=== PATIENT | female | born 1965 | race Caucasian/White ===

== ENCOUNTER 2020-06-15 02:33 | Inpatient (IN) | payer OTHER, MEDICAID ==
[2020-06-15] VITALS (19 sets, daily range): BP systolic 99–119; BP diastolic 62–86
[~2020-06-15] VITALS: Ht 165.1 cm; Wt 82.3 kg
--- NOTE | 2020-06-15 02:45 | NUR ---
Admission Note: Patient admitted from [facility] ER to room 12 in ICU. Patient was found unresponsive in her bed by son on 06/14. Patient was then intubated at [facility] ER due to unresponsive and no gag reflex. Patient is intubated with 7.5 tube and 24 at the teeth. Vent settings are TV of 500, peep 6, FiO2 35%, and RR 18. SpO2 is 100%. Patient moves extremities and has gag reflex but does not follow commands at this time. Patient is relax and not fighting vent with Propofol running at 15mcg/k/min. Patient is able to give medical history at this time and no family is with patient. Medical history pulled from chart from [facility]. Patient is SR to and stable BP with MAP above 65 on monitor. Patient has 98.9 oral temp. no edema. Skin is dry and intact. Patient has OG tube placed by ER. Patient has 18g left AC and 20g left hand. Patient is pending COVID and has been swab at ER. Bilateral SCDs in place. Dr. Baptiste called and orders have been put in. Will continue to monitor.
[2020-06-15 03:07] LABS: BASE EXCESS ABG -2 mmol/L (-3-3); HCO3 ABG 21 mmol/L (21-28); PCO2 ABG 29 mmHg (35-46); PO2 ABG 141 mmHg (75-108); SAT O2 ABG 99 % (92-99)
[2020-06-15] MEDS: IV NORMAL SALINE 1000ML BAG 1,000 ML IV SCH ×2 (03:15→08:52)
--- NOTE | 2020-06-15 03:23 | EKG ---
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
[2020-06-15] MEDS ORDERED: PROPOFOL 100 ML IV PRN (03:30)
[2020-06-15 03:49] LABS: FIO2 ABG 35
--- NOTE | 2020-06-15 06:48 | RAD ---
Study: XR CHEST 1V Indication: Intubation. Comparison: 06/14/2020 Findings: Endotracheal tube tip is at the level of the martita directed towards but not extending into the right mainstem bronchus. Enteric tube terminates beyond the inferior field of view. Unchanged cardiomediastinal silhouette and angelica. No confluent airspace infiltrate, pneumothorax or pl eural effusion. Impression: 1. Endotracheal tube is at the martita directed towards the right mainstem bronchus. Recommend retract ion by a few centimeters even though the lungs are symmetrically aerated. 2. No newly seen abnormality of the chest. Electronically signed by: JUANCARLOS ARTEAGA MD (06/15/2020 6:46 AM) [facility]
[2020-06-15 08:26] LABS: BASE EXCESS ABG -2 mmol/L (-3-3); HCO3 ABG 22 mmol/L (21-28); PCO2 ABG 33 mmHg (35-46); PO2 ABG 149 mmHg (75-108); SAT O2 ABG 99 % (92-99)
[2020-06-15 08:28] LABS: FIO2 ABG 35
--- NOTE | 2020-06-15 09:01 | PDOC2 ---
NEUROLOGY CONSULT Date of Service DOS: DATE: 06/15/20 TIME: 08:59 History of Present Illness History of Present Illness The patient is a 54-year-old female who came to the [facility] emergency department after her son found patient in a bathrobe and unresponsive. He was unable to arouse her and called emergency medical services. They found snoring respirations with no gag reflex, twitching movements, no response to noxious stimuli. Glucose was 154, they gave her Narcan. She was intubated. She has had suicide attempts in the past. She was at [facility]. There is no listed history of stroke or seizure. Past Medical History Hepatobiliary: Hep A/B/C Psych: Anxiety, Depression, Schizophrenia Family History Family History: No pertinent hx (Unobtainable) Social History Social History Unobtainable Current Medications Current Medications Current Medications Sodium Chloride 1,000 ml @ 100 mls/hr Q10H IV Last administered on 06/15/20at 08:52; Start 06/15/20 at 03:15 Propofol 100 ml @ 2.508 mls/ hr CONT PRN IV PER PROTOCOL Last administered on 06/15/20at 07:26; Start 06/15/20 at 03:30 Allergies Allergies: Coded Allergies: amitriptyline (Verified Allergy, Intermediate, 06/15/20) ROS Review of System Unobtainable Physical Exam Physical Examination General: Well-developed, well-nourished white female in no acute distress HEENT: Normocephalic andatraumatic. Temporal arteriespulsatile. Neck: Supple without bruit, no meningismus Musculoskeletal: Stability:see neurologic. Gait exam:see neurologic. Tone:see neurologic. Strength:see neurologic. Neurological: Mental Status:orientation, memory, attention span/concentration, language, fund of knowledge: Intubated, lightly sedated, moves to minimal stimulus. Cranial Nerves:Pupils equal and reactive to light, extraocular movements areintact. There is no facial asymmetry. All other cranial related problems are negative except as mentioned before.Reflexes:2+ and symmetric with flexor plantar responses. Motor:Moves to minimal stimulation. Coordination and gait:Not testable. Sensory:Not testable. Vitals VITALS Vital Signs Date Time Temp Pulse Resp B/P (MAP) Pulse Ox O2 Delivery O2 Flow Rate FiO2 06/15/20 07:45 100 Ventilator 4/23/21 07:00 90 18 112/66 (81) 06/15/20 05:00 98.4 98.4 Labs Labs [facility] laboratory studies: Positive for urine drug screen showing benzodiazepines Laboratory Tests Test 06/15/20 02:55 06/15/20 07:45 O2 Saturation 99 % (92-99) 99 % (92-99) Arterial Blood pH 7.48 (7.35-7.45) 7.44 (7.35-7.45) Arterial Blood pCO2 at Patient Temp 29 mmHg (35-46) 33 mmHg (35-46) Arterial Blood pO2 at Patient Temp 141 mmHg (75-108) 149 mmHg (75-108) Arterial Blood HCO3 21 mmol/L (21-28) 22 mmol/L (21-28) Arterial Blood Base Excess -2 mmol/L (-3-3) -2 mmol/L (-3-3) FiO2 35 35 Laboratory Tests Test 06/15/20 02:55 06/15/20 07:45 O2 Saturation 99 % (92-99) 99 % (92-99) Arterial Blood pH 7.48 (7.35-7.45) 7.44 (7.35-7.45) Arterial Blood pCO2 at Patient Temp 29 mmHg (35-46) 33 mmHg (35-46) Arterial Blood pO2 at Patient Temp 141 mmHg (75-108) 149 mmHg (75-108) Arterial Blood HCO3 21 mmol/L (21-28) 22 mmol/L (21-28) Arterial Blood Base Excess -2 mmol/L (-3-3) -2 mmol/L (-3-3) FiO2 [address] head without contrast, [facility] INDICATION: Change in mental status. COMPARISON: None. TECHNIQUE: Axial CT imaging through the head without the use of intravenous contrast. Sagittal and coronal reformats were obtained. One or more of the following individualized dose reduction techniques were utili zed for this examination: 1. Automated exposure control 2. Adjustment of the mA and/or kV according to patient size 3. Use of iterative reconstruction technique. FINDINGS: No acute intracranial hemorrhage. No mass effect, midline shift or hydrocephalu s. Schroeder-white matter differentiation is maintained. Unremarkable calvarium. No layering fluid seen within the visualized paranasal sinuses. Unremarkable mastoid air cells and middle ears. IMPRESSION: No acute intracranial abnormality by CT. Assessment/Plan Assessment/Plan Impression: Toxic encephalopathy, overdose of benzodiazepines suspected, patient is coming around. I see no evidence of stroke or seizure activity Recommendations: Attempt extubation later today Holding on additional neurological studies such as electroencephalogram and MRI. Thank you for letting me help with the patient's care. AVERY BURGOS MD Jun 15, 2020 09:01
[2020-06-15 09:21] LABS: BASO # 0.1 x10^3/uL (0.0-0.2); BASO % 0 % (0-3); EOS # 0.1 x10^3/uL (0.0-0.7); EOS % 1 % (0-3); HEMATOCRIT 34.2 % (36.0-47.0); HEMOGLOBIN 11.3 g/dL (12.0-15.5); LYMPH # 3.3 x10^3/uL (1.0-4.8); LYMPH % 26 % (24-48); MEAN CORPUSCULAR HEMOGLOBIN 30 pg (25-35); MEAN CORPUSCULAR HGB CONC 33 g/dL (31-37); MEAN CORPUSCULAR VOLUME 89 fL (79-100); MONO % 8 % (0-9); NEUT # 8.2 x10^3/uL (1.8-7.7); NEUT % 65 % (31-73); PLATELET COUNT 205 x10^3/uL (140-400); RED BLOOD COUNT 3.83 x10^6/uL (3.50-5.40); RED CELL DISTRIBUTION WIDTH 14.1 % (11.5-14.5); WHITE BLOOD COUNT 12.6 x10^3/uL (4.0-11.0)
[2020-06-15 09:25] LABS: CALCIUM 8.1 mg/dL (8.5-10.1); CREATININE 0.7 mg/dL (0.6-1.0); GFR 87.5; POTASSIUM 4.1 mmol/L (3.5-5.1)
--- NOTE | 2020-06-15 09:34 | PDOC ---
PULMONARY PROGRESS NOTES DATE: 06/15/20 TIME: 09:34 Vitals Vital Signs Date Time Temp Pulse Resp B/P (MAP) Pulse Ox O2 Delivery O2 Flow Rate FiO2 06/15/20 07:45 100 Ventilator 06/15/20 07:00 90 18 112/66 (81) 06/15/20 05:00 98.4 98.4 Labs Laboratory Tests Test 06/15/20 02:55 06/15/20 07:45 06/15/20 08:44 O2 Saturation 99 % (92-99) 99 % (92-99) Arterial Blood pH 7.48 (7.35-7.45) 7.44 (7.35-7.45) Arterial Blood pCO2 at Patient Temp 29 mmHg (35-46) 33 mmHg (35-46) Arterial Blood pO2 at Patient Temp 141 mmHg (75-108) 149 mmHg (75-108) Arterial Blood HCO3 21 mmol/L (21-28) 22 mmol/L (21-28) Arterial Blood Base Excess -2 mmol/L (-3-3) -2 mmol/L (-3-3) FiO2 35 35 White Blood Count 12.6 x10^3/uL (4.0-11.0) Red Blood Count 3.83 x10^6/uL (3.50-5.40) Hemoglobin 11.3 g/dL (12.0-15.5) Hematocrit 34.2 % (36.0-47.0) Mean Corpuscular Volume 89 fL (79-100) Mean Corpuscular Hemoglobin 30 pg (25-35) Mean Corpuscular Hemoglobin Concent 33 g/dL (31-37) Red Cell Distribution Width 14.1 % (11.5-14.5) Platelet Count 205 x10^3/uL (140-400) Neutrophils (%) (Auto) 65 % (31-73) Lymphocytes (%) (Auto) 26 % (24-48) Monocytes (%) (Auto) 8 % (0-9) Eosinophils (%) (Auto) 1 % (0-3) Basophils (%) (Auto) 0 % (0-3) Neutrophils # (Auto) 8.2 x10^3/uL (1.8-7.7) Lymphocytes # (Auto) 3.3 x10^3/uL (1.0-4.8) Monocytes # (Auto) 1.0 x10^3/uL (0.0-1.1) Eosinophils # (Auto) 0.1 x10^3/uL (0.0-0.7) Basophils # (Auto) 0.1 x10^3/uL (0.0-0.2) Sodium Level 143 mmol/L (136-145) Potassium Level 4.1 mmol/L (3.5-5.1) Chloride Level 108 mmol/L (98-107) Carbon Dioxide Level 25 mmol/L (21-32) Anion Gap 10 (6-14) Blood Urea Nitrogen 17 mg/dL (7-20) Creatinine 0.7 mg/dL (0.6-1.0) Estimated GFR (Cockcroft-Gault) 87.5 Glucose Level 118 mg/dL (70-99) Calcium Level 8.1 mg/dL (8.5-10.1) Laboratory Tests Test 06/15/20 02:55 06/15/20 07:45 06/15/20 08:44 O2 Saturation 99 % (92-99) 99 % (92-99) Arterial Blood pH 7.48 (7.35-7.45) 7.44 (7.35-7.45) Arterial Blood pCO2 at Patient Temp 29 mmHg (35-46) 33 mmHg (35-46) Arterial Blood pO2 at Patient Temp 141 mmHg (75-108) 149 mmHg (75-108) Arterial Blood HCO3 21 mmol/L (21-28) 22 mmol/L (21-28) Arterial Blood Base Excess -2 mmol/L (-3-3) -2 mmol/L (-3-3) FiO2 35 35 White Blood Count 12.6 x10^3/uL (4.0-11.0) Red Blood Count 3.83 x10^6/uL (3.50-5.40) Hemoglobin 11.3 g/dL (12.0-15.5) Hematocrit 34.2 % (36.0-47.0) Mean Corpuscular Volume 89 fL (79-100) Mean Corpuscular Hemoglobin 30 pg (25-35) Mean Corpuscular Hemoglobin Concent 33 g/dL (31-37) Red Cell Distribution Width 14.1 % (11.5-14.5) Platelet Count 205 x10^3/uL (140-400) Neutrophils (%) (Auto) 65 % (31-73) Lymphocytes (%) (Auto) 26 % (24-48) Monocytes (%) (Auto) 8 % (0-9) Eosinophils (%) (Auto) 1 % (0-3) Basophils (%) (Auto) 0 % (0-3) Neutrophils # (Auto) 8.2 x10^3/uL (1.8-7.7) Lymphocytes # (Auto) 3.3 x10^3/uL (1.0-4.8) Monocytes # (Auto) 1.0 x10^3/uL (0.0-1.1) Eosinophils # (Auto) 0.1 x10^3/uL (0.0-0.7) Basophils # (Auto) 0.1 x10^3/uL (0.0-0.2) Sodium Level 143 mmol/L (136-145) Potassium Level 4.1 mmol/L (3.5-5.1) Chloride Level 108 mmol/L (98-107) Carbon Dioxide Level 25 mmol/L (21-32) Anion Gap 10 (6-14) Blood Urea Nitrogen 17 mg/dL (7-20) Creatinine 0.7 mg/dL (0.6-1.0) Estimated GFR (Cockcroft-Gault) 87.5 Glucose Level 118 mg/dL (70-99) Calcium Level 8.1 mg/dL (8.5-10.1) Impression . Full consult dictated Acute hypoxemic respiratory failure secondary to benzodiazepine overdose Patient hemodynamically stable, overnight, will proceed with extubation ROXANA DEE MD Jun 15, 2020 09:34
[2020-06-15] MEDS ORDERED: ASPIRIN CHEWABLE 81 MG TABLET. PO ONE (11:30)
--- NOTE | 2020-06-15 11:32 | PDOC2 ---
WELLINGTON ORNELAS CONTINUING EDUCATION SPECIALIST 06/15/20 1132: CARDIAC CONSULT DATE OF CONSULT Date of Consult DATE: 06/15/20 TIME: 10:56 REASON FOR CONSULT Reason for Consult: Elevated troponin REFERRING PHYSICIAN Referring Physician: Emile SOURCE Source: Chart review HISTORY OF PRESENT ILLNESS HISTORY OF PRESENT ILLNESS This is a 54 yo female admitted for noted unresponsiveness. She was found at home on her bathrobe by her son and unresponsive and was noted with sonorous breathing with no gag reflex and no response to noxious stimuli but appears to have had intermittent twitching per chart review. She was then intubated with ve nt. Unclear if she fell, passed out and how long she was at that state and what her position when found. No known hx of cardiovascular disease nor VTE but notable for psychiatric history with schizophrenia, anxiety and depression and was at [facility] before in 03/2020 for suicidal ideation. Positive for benzos per UDS. She was given narcan in the field. She was initially at [facility] and was noted initially with fever of 101.5 with mildlly labile BP HTN No prior hx of seizures or CVA nor arrhythmias. Also unclear what her rhythm was when checked by EMS. Remains intubated, unsedated and only responds to painful stimuli. PAST MEDICAL HISTORY Hepatobiliary: Hep A/B/C (C) Psych: Anxiety, Depression, Schizophrenia Musculoskeletal: Osteoarthritis PAST SURGICAL HISTORY Past Surgical History unknown FAMILY HISTORY Family History: Family History Unknown SOCIAL HISTORY Smoke: <1 pack per day ALCOHOL: none Drugs: None Lives: with Family CURRENT MEDICATIONS CURRENT MEDICATIONS Current Medications Medications (Trade) Dose Ordered Sig/Stefani Route PRN Reason Start Time Stop Time Status Last Admin Dose Admin Sodium Chloride 1,000 ml @ 100 mls/hr Q10H IV 06/15/20 03:15 06/15/20 08:52 Propofol 100 ml @ 2.508 mls/ hr CONT PRN IV PER PROTOCOL 06/15/20 03:30 06/15/20 07:26 ALLERGIES ALLERGIES: Coded Allergies: amitriptyline (Verified Allergy, Intermediate, 06/15/20) ROS Review of System unrelaible PHYSICAL EXAM General: Other (intubated) HEENT: Atraumatic, Mucous membr. moist/pink Lungs: Other (diminished, mechanical vent/intubated) Heart: Regular rate (SR), Normal S1, Normal S2, No murmurs Abdomen: Soft Extremities: No cyanosis, No edema Skin: No breakdown, No significant lesion Neuro: Other (sedated) MUSCULOSKELETAL: Osteoarthritic changes both hands VITALS/I&O VITALS/I&O: Vital Signs Date Time Temp Pulse Resp B/P (MAP) Pulse Ox O2 Delivery O2 Flow Rate FiO2 06/15/20 09:46 100 Ventilator 06/15/20 09:00 89 21 114/70 (85) 06/15/20 08:00 98.9 98.9 I & O 06/14/20 06/14/20 06/15/20 15:00 23:00 07:00 Intake Total 281 ml Output Total 225 ml Balance 56 ml LABS Lab: Laboratory Tests Test 06/15/20 02:55 06/15/20 07:45 06/15/20 08:44 O2 Saturation 99 % (92-99) 99 % (92-99) Arterial Blood pH 7.48 (7.35-7.45) H 7.44 (7.35-7.45) Arterial Blood pCO2 at Patient Temp 29 mmHg (35-46) L 33 mmHg (35-46) L Arterial Blood pO2 at Patient Temp 141 mmHg (75-108) H 149 mmHg (75-108) H Arterial Blood HCO3 21 mmol/L (21-28) 22 mmol/L (21-28) Arterial Blood Base Excess -2 mmol/L (-3-3) -2 mmol/L (-3-3) FiO2 35 35 White Blood Count 12.6 x10^3/uL (4.0-11.0) H Red Blood Count 3.83 x10^6/uL (3.50-5.40) Hemoglobin 11.3 g/dL (12.0-15.5) L Hematocrit 34.2 % (36.0-47.0) L Mean Corpuscular Volume 89 fL (79-100) Mean Corpuscular Hemoglobin 30 pg (25-35) Mean Corpuscular Hemoglobin Concent 33 g/dL (31-37) Red Cell Distribution Width 14.1 % (11.5-14.5) Platelet Count 205 x10^3/uL (140-400) Neutrophils (%) (Auto) 65 % (31-73) Lymphocytes (%) (Auto) 26 % (24-48) Monocytes (%) (Auto) 8 % (0-9) Eosinophils (%) (Auto) 1 % (0-3) Basophils (%) (Auto) 0 % (0-3) Neutrophils # (Auto) 8.2 x10^3/uL (1.8-7.7) H Lymphocytes # (Auto) 3.3 x10^3/uL (1.0-4.8) Monocytes # (Auto) 1.0 x10^3/uL (0.0-1.1) Eosinophils # (Auto) 0.1 x10^3/uL (0.0-0.7) Basophils # (Auto) 0.1 x10^3/uL (0.0-0.2) Sodium Level 143 mmol/L (136-145) Potassium Level 4.1 mmol/L (3.5-5.1) Chloride Level 108 mmol/L (98-107) H Carbon Dioxide Level 25 mmol/L (21-32) Anion Gap 10 (6-14) Blood Urea Nitrogen 17 mg/dL (7-20) Creatinine 0.7 mg/dL (0.6-1.0) Estimated GFR (Cockcroft-Gault) 87.5 Glucose Level 118 mg/dL (70-99) H Calcium Level 8.1 mg/dL (8.5-10.1) L Ammonia 17 mcmol/L (11-34) Troponin I Quantitative 0.275 ng/mL (0.000-0.055) Laboratory Tests 06/15/20 08:44 Laboratory Tests 06/15/20 08:44 ASSESSMENT/PLAN ASSESSMENT/PLAN 1. Acute respiratory failure: possibly med related. intubated/vent 2. Toxic encephalopathy: UDS+ benzo. Narcan was given per EMS but no noted romazicon given 3. Mild troponin elevation: peaked at 0.2 Suspect demand mediated type 2 due to respiratory failure. EKG NSR. No known CV hx. No arrhythmias so far. SR 4. Hx of schizophrenia/anxiety/depression/SI 5. PUI 6. Fever: T max 101.5 per PCP 7. HTN: initially elevated but presently controlled with propofol in place. 8. Obesity 9. Mild transaminitis with hx of hep C Recommendations 1. Continue pulmonary optimization 2. TTE if covid-19 neg 3. TSH, FLP., Neurology following 4. ASA 5. Supportive care PASNOORI,SIS R MD 06/15/20 1612: CARDIAC CONSULT ASSESSMENT/PLAN ASSESSMENT/PLAN Patient seen and examined. Agree with LOCK AND DAM REPAIRER's assessment and plan. Acute respiratory failure most probably secondary to toxic encephalopathy. Continue vent management per pulmonary team. Slight troponin elevation probably demand ischemia. Plan for 2D echo if Covid negative and ischemic evaluation as an outpatient. 5 consultation. WELLINGTON ORNELAS APRN Jun 15, 2020 11:32 SIS BARILLAS MD Jun 15, 2020 16:12
[2020-06-15 12:07] LABS: CHOLESTEROL/HDL RATIO 5.5
--- NOTE | 2020-06-15 12:45 | NUR ---
Pt extubated and OG removed by RT. No complications. Placed on 02 by NC. Will monitor status.
--- NOTE | 2020-06-15 13:51 | HP ---
ADMIT DATE: 06/15/2020 HISTORY OF PRESENT ILLNESS: The patient is a 54-year-old female patient who presented to the emergency room with acute altered mental status. The last time was seen normal was approximately five hours prior to arrival to the Emergency Room. Her son found her in the bathroom and non-responsive. She was unable to be aroused by her mother and called the EMS. On arrival, she had snoring respiration with no gag response. She did have twitching type movement, but no response to noxious stimuli. Her glucose was 154 mg per paramedics. She did receive Narcan upon arrival with no response. The patient was intubated for protection of her airways and she was also febrile on arrival with a temperature of 101.5 and was hypertensive; however, there is no history of recent travel or specific ill contact. She has had some lab work that showed a white cell count was slightly elevated at 11,000. Her blood gasses were unremarkable. Her coagulation tests were all within normal range. Her chemistry was also unremarkable apart from impaired liver enzymes and the patient was basically transferred to [facility] ICU for further evaluation and treatment. Her CT scan of the head was unremarkable with no acute intracranial abnormality by CT scan and her chest x-ray was also unremarkable, it showed endotracheal tube was within the trachea, but only 1 cm above the martita, retraction by a few centimeters could be considered, well-positioned enteric tube. No acute radiographic abnormality of the chest. PAST MEDICAL HISTORY: Significant for apparently anxiety, depression. She has a history of hepatitis C and schizophrenia together multiple episodes of suicidal ideation and homicidal ideation. Apparently, she was evaluated at [facility] Emergency Department on 04/13/2020 for suicidal and homicidal ideation. At that time, the patient was transferred to [facility]. The patient is known also to use tobacco and has noncompliance with her medication. PAST SURGICAL HISTORY Unremarkable. FAMILY HISTORY: Unobtainable. SOCIAL HISTORY: She lives at home. She apparently does not drink alcohol or use any recreational drugs. REVIEW OF SYSTEMS: Unobtainable. ALLERGIES: SHE IS ALLERGIC TO AMITRIPTYLINE. MEDICATIONS: At home she apparently was on cyclobenzaprine, ciprofloxacin 500 mg twice a day and ibuprofen 600 mg every 6 hours. She has also chronic back pain. PHYSICAL EXAMINATION: VITAL SIGNS: On arrival to the emergency room, she was unresponsive, somewhat pale, not jaundiced or cyanosed, no lymphadenopathy, no thyromegaly. Her heart rate was 152, blood pressure was 177/89, temperature was 101.5, respiratory rate was 40 and her oxygen saturation was 98% on room air. HEENT: On examination of the head, eyes, ears, nose, and throat: She is normocephalic, atraumatic. NECK: Supple. HEART: Normal first and second heart sounds. No gallop or murmur. LUNGS: Clear to auscultation, no crepitation or rhonchi. ABDOMEN: Distended, soft, nontender. NEUROLOGIC: She was unresponsive with no gag reflex. She does not respond even to painful stimuli. Obviously, she was intubated and mechanically ventilated. LABORATORY DATA: Her lab work showed a white cell count of 11,000, hemoglobin 13, hematocrit 40, MCV 90 and platelet count 229,000 with a manual differential showed 84% polymorphs, 10% lymphocytes, 5% monocytes. Her chemistry showed a serum sodium 138, potassium 4.1, chloride 104, bicarbonate 25, anion gap of 9, BUN 19, creatinine 1.1. Estimated GFR was 52 mL per minute. Her glucose was 176. Lactic acid was 1.9. Calcium was 9.3, magnesium was 1.3. Total bilirubin is normal. AST, ALT, alkaline phosphatase are all elevated. Her CK was only 120. First set of troponin was 0.125. C-reactive protein was 0.5. Total beta natriuretic peptide was 66, total protein 7.7, albumin was 3.3. Arterial blood gas with a pH of 7.40, pCO2 of 41, pO2 of 186, bicarbonate 25 and oxygen saturation was 100% on FIO2 of 45%. Her prothrombin time, INR, aPTT and D-dimer were all normal. Urinalysis was essentially unremarkable. The urine was fadia clear with a pH of 5.5, specific gravity was 1.030. There was a trace of protein. The urine was negative for glucose. There is trace of ketones, negative for blood, nitrite and also leukocyte esterase and 1-2 rbc's, 1-4 wbc's and no bacteria. Her tox screen was positive only for benzodiazepine and her salicylate was 2.8, acetaminophen was less than 2. She was negative for opiates, methadone, barbiturates, phencyclidine, amphetamine, methamphetamine, cocaine, cannabinoids and alcohol. Her chest x-ray showed that the endotracheal tube is within the trachea, but it is only 1 cm above the martita and retraction by a few centimeters could be considered and well-positioned enteric tube. No acute radiographic abnormality of the chest, mild appearing volume loss at the left lung base. Her CT scan of the head showed no acute intracranial hemorrhage, no mass effect, midline shift or hydrocephalus., rehman-white matter differentiation is maintained, unremarkable calvarium. No layering fluid seen within the visualized paranasal sinuses, unremarkable mastoid air cells and middle ears. ASSESSMENT AND PLAN: The patient was transferred to [facility] with altered mental status, acute respiratory failure. The patient is known to have depression, anxiety as well as schizophrenia. She has had suicidal attempts before, the last one was in April 13, 2020. At that time, she was transferred to [facility]. The patient has hepatitis C, so we will also check her ammonia, although her prothrombin time and INR are within normal range. I have consulted the potato grader and neurologist. Obviously, if she continues to have a fever we will order blood and urine for culture and sensitivity. She was swabbed for Novel coronavirus and she did have actually blood cultures sent at [facility]. VIKA/URMILA LANDIN: Evgeny TID: [id number]
--- NOTE | 2020-06-15 15:01 | NUR ---
SS following for discharge planning. SS reviewed pt chart and discussed with pt RN. Pt is from home. Pt was on the vent and was extubated today and is currently requiring three liters nasal canula. Pt agitated. No sedation. Per report, pt has a history of SI and HI and Schizophrenia. Pt has had recent stay at [facility]. PAT team referral made for assessment and recommendations. SS will continue to follow for discharge planning.
[2020-06-16 00:22] VITALS: BP 119/66
[2020-06-16 04:20] VITALS: BP 106/81
[2020-06-16 05:34] LABS: HEMATOCRIT 33.3 % (36.0-47.0); HEMOGLOBIN 11.1 g/dL (12.0-15.5); RED BLOOD COUNT 3.66 x10^6/uL (3.50-5.40); WHITE BLOOD COUNT 10.3 x10^3/uL (4.0-11.0)
[2020-06-16 06:12] LABS: ALBUMIN 2.7 g/dL (3.4-5.0); ALBUMIN/GLOBULIN RATIO 0.7 (1.0-1.7); CALCIUM 8.9 mg/dL (8.5-10.1); CREATININE 0.7 mg/dL (0.6-1.0); GFR 87.5; POTASSIUM 4.1 mmol/L (3.5-5.1); TOTAL BILIRUBIN 0.6 mg/dL (0.2-1.0); TOTAL PROTEIN 6.6 g/dL (6.4-8.2)
--- NOTE | 2020-06-16 07:55 | PDOC ---
PULMONARY PROGRESS NOTES DATE: 06/16/20 TIME: 07:53 Subjective ext 06/15, on RA agitated confused Vitals Vital Signs Date Time Temp Pulse Resp B/P (MAP) Pulse Ox O2 Delivery O2 Flow Rate FiO2 06/16/20 04:20 95 22 106/81 (89) 95 Room Air 06/16/20 00:22 98.5 98.5 06/15/20 16:00 3.0 General: Lethargic HEENT: Other (nc at perrl) Lungs: Crackles Cardiovascular: S1, S2 Abdomen: Soft, Non-tender Extremities: No Edema Skin: Warm Labs Laboratory Tests Test 06/15/20 02:55 06/15/20 04:00 06/15/20 07:45 06/15/20 08:44 O2 Saturation 99 % (92-99) 99 % (92-99) Arterial Blood pH 7.48 (7.35-7.45) 7.44 (7.35-7.45) Arterial Blood pCO2 at Patient Temp 29 mmHg (35-46) 33 mmHg (35-46) Arterial Blood pO2 at Patient Temp 141 mmHg (75-108) 149 mmHg (75-108) Arterial Blood HCO3 21 mmol/L (21-28) 22 mmol/L (21-28) Arterial Blood Base Excess -2 mmol/L (-3-3) -2 mmol/L (-3-3) FiO2 35 35 Triglycerides Level 55 mg/dL (0-150) Cholesterol Level 133 mg/dL (0-200) LDL Cholesterol, Calculated 98 mg/dL (0-100) VLDL Cholesterol, Calculated 11 mg/dL (0-40) Non-HDL Cholesterol Calculated 109 mg/dL (0-129) HDL Cholesterol 24 mg/dL (40-60) Cholesterol/HDL Ratio 5.5 Thyroid Stimulating Hormone (TSH) 5.222 uIU/mL (0.358-3.74) White Blood Count 12.6 x10^3/uL (4.0-11.0) Red Blood Count 3.83 x10^6/uL (3.50-5.40) Hemoglobin 11.3 g/dL (12.0-15.5) Hematocrit 34.2 % (36.0-47.0) Mean Corpuscular Volume 89 fL (79-100) Mean Corpuscular Hemoglobin 30 pg (25-35) Mean Corpuscular Hemoglobin Concent 33 g/dL (31-37) Red Cell Distribution Width 14.1 % (11.5-14.5) Platelet Count 205 x10^3/uL (140-400) Neutrophils (%) (Auto) 65 % (31-73) Lymphocytes (%) (Auto) 26 % (24-48) Monocytes (%) (Auto) 8 % (0-9) Eosinophils (%) (Auto) 1 % (0-3) Basophils (%) (Auto) 0 % (0-3) Neutrophils # (Auto) 8.2 x10^3/uL (1.8-7.7) Lymphocytes # (Auto) 3.3 x10^3/uL (1.0-4.8) Monocytes # (Auto) 1.0 x10^3/uL (0.0-1.1) Eosinophils # (Auto) 0.1 x10^3/uL (0.0-0.7) Basophils # (Auto) 0.1 x10^3/uL (0.0-0.2) Sodium Level 143 mmol/L (136-145) Potassium Level 4.1 mmol/L (3.5-5.1) Chloride Level 108 mmol/L (98-107) Carbon Dioxide Level 25 mmol/L (21-32) Anion Gap 10 (6-14) Blood Urea Nitrogen 17 mg/dL (7-20) Creatinine 0.7 mg/dL (0.6-1.0) Estimated GFR (Cockcroft-Gault) 87.5 Glucose Level 118 mg/dL (70-99) Calcium Level 8.1 mg/dL (8.5-10.1) Ammonia 17 mcmol/L (11-34) Troponin I Quantitative 0.275 ng/mL (0.000-0.055) Test 06/15/20 12:25 06/16/20 05:00 Troponin I Quantitative 0.183 ng/mL (0.000-0.055) White Blood Count 10.3 x10^3/uL (4.0-11.0) Red Blood Count 3.66 x10^6/uL (3.50-5.40) Hemoglobin 11.1 g/dL (12.0-15.5) Hematocrit 33.3 % (36.0-47.0) Mean Corpuscular Volume 91 fL (79-100) Mean Corpuscular Hemoglobin 30 pg (25-35) Mean Corpuscular Hemoglobin Concent 34 g/dL (31-37) Red Cell Distribution Width 14.0 % (11.5-14.5) Platelet Count 187 x10^3/uL (140-400) Sodium Level 143 mmol/L (136-145) Potassium Level 4.1 mmol/L (3.5-5.1) Chloride Level 109 mmol/L (98-107) Carbon Dioxide Level 24 mmol/L (21-32) Anion Gap 10 (6-14) Blood Urea Nitrogen 16 mg/dL (7-20) Creatinine 0.7 mg/dL (0.6-1.0) Estimated GFR (Cockcroft-Gault) 87.5 BUN/Creatinine Ratio 23 (6-20) Glucose Level 101 mg/dL (70-99) Calcium Level 8.9 mg/dL (8.5-10.1) Total Bilirubin 0.6 mg/dL (0.2-1.0) Aspartate Amino Transf (AST/SGOT) 62 U/L (15-37) Alanine Aminotransferase (ALT/SGPT) 56 U/L (14-59) Alkaline Phosphatase 93 U/L (46-116) Total Protein 6.6 g/dL (6.4-8.2) Albumin 2.7 g/dL (3.4-5.0) Albumin/Globulin Ratio 0.7 (1.0-1.7) Laboratory Tests Test 06/15/20 08:44 06/15/20 12:25 06/16/20 05:00 White Blood Count 12.6 x10^3/uL (4.0-11.0) 10.3 x10^3/uL (4.0-11.0) Red Blood Count 3.83 x10^6/uL (3.50-5.40) 3.66 x10^6/uL (3.50-5.40) Hemoglobin 11.3 g/dL (12.0-15.5) 11.1 g/dL (12.0-15.5) Hematocrit 34.2 % (36.0-47.0) 33.3 % (36.0-47.0) Mean Corpuscular Volume 89 fL (79-100) 91 fL (79-100) Mean Corpuscular Hemoglobin 30 pg (25-35) 30 pg (25-35) Mean Corpuscular Hemoglobin Concent 33 g/dL (31-37) 34 g/dL (31-37) Red Cell Distribution Width 14.1 % (11.5-14.5) 14.0 % (11.5-14.5) Platelet Count 205 x10^3/uL (140-400) 187 x10^3/uL (140-400) Neutrophils (%) (Auto) 65 % (31-73) Lymphocytes (%) (Auto) 26 % (24-48) Monocytes (%) (Auto) 8 % (0-9) Eosinophils (%) (Auto) 1 % (0-3) Basophils (%) (Auto) 0 % (0-3) Neutrophils # (Auto) 8.2 x10^3/uL (1.8-7.7) Lymphocytes # (Auto) 3.3 x10^3/uL (1.0-4.8) Monocytes # (Auto) 1.0 x10^3/uL (0.0-1.1) Eosinophils # (Auto) 0.1 x10^3/uL (0.0-0.7) Basophils # (Auto) 0.1 x10^3/uL (0.0-0.2) Sodium Level 143 mmol/L (136-145) 143 mmol/L (136-145) Potassium Level 4.1 mmol/L (3.5-5.1) 4.1 mmol/L (3.5-5.1) Chloride Level 108 mmol/L (98-107) 109 mmol/L (98-107) Carbon Dioxide Level 25 mmol/L (21-32) 24 mmol/L (21-32) Anion Gap 10 (6-14) 10 (6-14) Blood Urea Nitrogen 17 mg/dL (7-20) 16 mg/dL (7-20) Creatinine 0.7 mg/dL (0.6-1.0) 0.7 mg/dL (0.6-1.0) Estimated GFR (Cockcroft-Gault) 87.5 87.5 Glucose Level 118 mg/dL (70-99) 101 mg/dL (70-99) Calcium Level 8.1 mg/dL (8.5-10.1) 8.9 mg/dL (8.5-10.1) Ammonia 17 mcmol/L (11-34) Troponin I Quantitative 0.275 ng/mL (0.000-0.055) 0.183 ng/mL (0.000-0.055) BUN/Creatinine Ratio 23 (6-20) Total Bilirubin 0.6 mg/dL (0.2-1.0) Aspartate Amino Transf (AST/SGOT) 62 U/L (15-37) Alanine Aminotransferase (ALT/SGPT) 56 U/L (14-59) Alkaline Phosphatase 93 U/L (46-116) Total Protein 6.6 g/dL (6.4-8.2) Albumin 2.7 g/dL (3.4-5.0) Albumin/Globulin Ratio 0.7 (1.0-1.7) Comments cxr reviewed 1. Endotracheal tube is at the martita directed towards the right mainstem bronchus. Recommend retraction by a few centimeters even though the lungs are symmetrically aerated. 2. No newly seen abnormality of the chest. Impression . IMPRESSION: 1. Acute respiratory failure secondary to benzodiazepine overdose. 2. Toxic encephalopathy. 3. History of depression and schizophrenia. 4. Hemodynamically stable. 5. Mild elevation in troponin. 6. Fever, currently afebrile. Plan . 02 titration elevated hob avoid oversedation fall precaution Follow Neurology input. The patient has been afebrile since admission to [facility], we will continue to monitor. failed speech eval discussed w SERINA Jurado MD Jun 16, 2020 07:55
[2020-06-16] MEDS: ASPIRIN CHEWABLE 81 MG TABLET. PO SCH (07:56)
[2020-06-16 08:00] VITALS: BP 137/93
[2020-06-16] MEDS: AMINO AC 3%/ELECTROLYTE/GLYCER 1,000 ML IV SCH ×2 (09:17→21:53)
[2020-06-16 12:09] VITALS: BP 133/77
--- NOTE | 2020-06-16 12:50 | PDOC ---
PROGRESS NOTES Date of Service DATE: 06/16/20 TIME: 12:48 Assessment Toxic encephalopathy, overdose of benzodiazepines suspected, patient is coming around. I see no evidence of stroke or seizure activity Extubated 06/15 Plan Observation Holding on additional neurological studies such as electroencephalogram and MRI. Subjective None Objective Vital Signs Date Time Temp Pulse Resp B/P (MAP) Pulse Ox O2 Delivery O2 Flow Rate FiO2 06/16/20 12:09 98.5 121 30 133/77 (95) 94 Room Air 2.0 98.5 Intake and Output 06/16/20 07:00 Intake Total 1799 ml Output Total 1345 ml Balance 454 ml Other 1799 ml Output Urine Total 1345 ml PHYSICAL EXAM Combative earlier Eyes closed, stirs to voice, moans, does not follow commands PERRL. EOMI. CN: no focal findings. Muscle tone: normal. Muscle strength: Moves all extremities DTR: 2+ Plantar reflex: Flexor Gait: not examined in bed. Sensory exam: Responds to pinprick in all 4 extremities Cerebellar: Not cooperative Review of Relevant I have reviewed the following items latha (where applicable) has been applied. Labs Laboratory Tests Test 06/15/20 02:55 06/15/20 04:00 06/15/20 07:45 06/15/20 08:44 O2 Saturation 99 % (92-99) 99 % (92-99) Arterial Blood pH 7.48 (7.35-7.45) 7.44 (7.35-7.45) Arterial Blood pCO2 at Patient Temp 29 mmHg (35-46) 33 mmHg (35-46) Arterial Blood pO2 at Patient Temp 141 mmHg (75-108) 149 mmHg (75-108) Arterial Blood HCO3 21 mmol/L (21-28) 22 mmol/L (21-28) Arterial Blood Base Excess -2 mmol/L (-3-3) -2 mmol/L (-3-3) FiO2 35 35 Triglycerides Level 55 mg/dL (0-150) Cholesterol Level 133 mg/dL (0-200) LDL Cholesterol, Calculated 98 mg/dL (0-100) VLDL Cholesterol, Calculated 11 mg/dL (0-40) Non-HDL Cholesterol Calculated 109 mg/dL (0-129) HDL Cholesterol 24 mg/dL (40-60) Cholesterol/HDL Ratio 5.5 Thyroid Stimulating Hormone (TSH) 5.222 uIU/mL (0.358-3.74) White Blood Count 12.6 x10^3/uL (4.0-11.0) Red Blood Count 3.83 x10^6/uL (3.50-5.40) Hemoglobin 11.3 g/dL (12.0-15.5) Hematocrit 34.2 % (36.0-47.0) Mean Corpuscular Volume 89 fL (79-100) Mean Corpuscular Hemoglobin 30 pg (25-35) Mean Corpuscular Hemoglobin Concent 33 g/dL (31-37) Red Cell Distribution Width 14.1 % (11.5-14.5) Platelet Count 205 x10^3/uL (140-400) Neutrophils (%) (Auto) 65 % (31-73) Lymphocytes (%) (Auto) 26 % (24-48) Monocytes (%) (Auto) 8 % (0-9) Eosinophils (%) (Auto) 1 % (0-3) Basophils (%) (Auto) 0 % (0-3) Neutrophils # (Auto) 8.2 x10^3/uL (1.8-7.7) Lymphocytes # (Auto) 3.3 x10^3/uL (1.0-4.8) Monocytes # (Auto) 1.0 x10^3/uL (0.0-1.1) Eosinophils # (Auto) 0.1 x10^3/uL (0.0-0.7) Basophils # (Auto) 0.1 x10^3/uL (0.0-0.2) Sodium Level 143 mmol/L (136-145) Potassium Level 4.1 mmol/L (3.5-5.1) Chloride Level 108 mmol/L (98-107) Carbon Dioxide Level 25 mmol/L (21-32) Anion Gap 10 (6-14) Blood Urea Nitrogen 17 mg/dL (7-20) Creatinine 0.7 mg/dL (0.6-1.0) Estimated GFR (Cockcroft-Gault) 87.5 Glucose Level 118 mg/dL (70-99) Calcium Level 8.1 mg/dL (8.5-10.1) Ammonia 17 mcmol/L (11-34) Troponin I Quantitative 0.275 ng/mL (0.000-0.055) Test 06/15/20 12:25 06/16/20 05:00 Troponin I Quantitative 0.183 ng/mL (0.000-0.055) White Blood Count 10.3 x10^3/uL (4.0-11.0) Red Blood Count 3.66 x10^6/uL (3.50-5.40) Hemoglobin 11.1 g/dL (12.0-15.5) Hematocrit 33.3 % (36.0-47.0) Mean Corpuscular Volume 91 fL (79-100) Mean Corpuscular Hemoglobin 30 pg (25-35) Mean Corpuscular Hemoglobin Concent 34 g/dL (31-37) Red Cell Distribution Width 14.0 % (11.5-14.5) Platelet Count 187 x10^3/uL (140-400) Sodium Level 143 mmol/L (136-145) Potassium Level 4.1 mmol/L (3.5-5.1) Chloride Level 109 mmol/L (98-107) Carbon Dioxide Level 24 mmol/L (21-32) Anion Gap 10 (6-14) Blood Urea Nitrogen 16 mg/dL (7-20) Creatinine 0.7 mg/dL (0.6-1.0) Estimated GFR (Cockcroft-Gault) 87.5 BUN/Creatinine Ratio 23 (6-20) Glucose Level 101 mg/dL (70-99) Calcium Level 8.9 mg/dL (8.5-10.1) Total Bilirubin 0.6 mg/dL (0.2-1.0) Aspartate Amino Transf (AST/SGOT) 62 U/L (15-37) Alanine Aminotransferase (ALT/SGPT) 56 U/L (14-59) Alkaline Phosphatase 93 U/L (46-116) Total Protein 6.6 g/dL (6.4-8.2) Albumin 2.7 g/dL (3.4-5.0) Albumin/Globulin Ratio 0.7 (1.0-1.7) Laboratory Tests Test 06/16/20 05:00 White Blood Count 10.3 x10^3/uL (4.0-11.0) Red Blood Count 3.66 x10^6/uL (3.50-5.40) Hemoglobin 11.1 g/dL (12.0-15.5) Hematocrit 33.3 % (36.0-47.0) Mean Corpuscular Volume 91 fL (79-100) Mean Corpuscular Hemoglobin 30 pg (25-35) Mean Corpuscular Hemoglobin Concent 34 g/dL (31-37) Red Cell Distribution Width 14.0 % (11.5-14.5) Platelet Count 187 x10^3/uL (140-400) Sodium Level 143 mmol/L (136-145) Potassium Level 4.1 mmol/L (3.5-5.1) Chloride Level 109 mmol/L (98-107) Carbon Dioxide Level 24 mmol/L (21-32) Anion Gap 10 (6-14) Blood Urea Nitrogen 16 mg/dL (7-20) Creatinine 0.7 mg/dL (0.6-1.0) Estimated GFR (Cockcroft-Gault) 87.5 BUN/Creatinine Ratio 23 (6-20) Glucose Level 101 mg/dL (70-99) Calcium Level 8.9 mg/dL (8.5-10.1) Total Bilirubin 0.6 mg/dL (0.2-1.0) Aspartate Amino Transf (AST/SGOT) 62 U/L (15-37) Alanine Aminotransferase (ALT/SGPT) 56 U/L (14-59) Alkaline Phosphatase 93 U/L (46-116) Total Protein 6.6 g/dL (6.4-8.2) Albumin 2.7 g/dL (3.4-5.0) Albumin/Globulin Ratio 0.7 (1.0-1.7) Medications Current Medications Sodium Chloride 1,000 ml @ 100 mls/hr Q10H IV Last administered on 06/15/20at 08:52; Start 06/15/20 at 03:15; Stop 06/15/20 at 19:06; Status DC Propofol 100 ml @ 2.508 mls/ hr CONT PRN IV PER PROTOCOL Last administered on 06/15/20at 07:26; Start 06/15/20 at 03:30; Stop 06/16/20 at 08:14; Status DC Aspirin (Aspirin Chewable) 81 mg 1X ONCE PO ; Start 06/15/20 at 11:30; Stop 06/15/20 at 11:31; Status DC Aspirin (Aspirin Chewable) 81 mg [id number] PO ; Start 06/16/20 at 08:00 Lorazepam (Ativan Inj) 1 mg PRN Q4HRS PRN IVP ANXIETY / AGITATION Last administered on 06/16/20at 07:49; Start 06/15/20 at 20:30; Stop 06/16/20 at 08:14; Status DC Olanzapine (ZyPREXA IM) 2.5 mg PRN Q4HRS PRN IM AGITATION; Start 06/16/20 at 08:00 Amino Acids/ Glycerin/ Electrolytes 1,000 ml @ 80 mls/hr [id number] IV Last administered on 06/16/20at 09:17; Start 06/16/20 at 09:00 Vitals/I & O Vital Sign - Last 24 Hours 06/15/20 06/15/20 06/15/20 06/15/20 13:00 16:00 19:50 20:00 Temp 98.5 98.1 98.5 98.1 Pulse 90 82 87 Resp 21 16 24 B/P (MAP) 100/73 (82) 102/69 (80) 99/63 (75) Pulse Ox 97 99 95 O2 Delivery Nasal Cannula Ventilator Room Air Room Air O2 Flow Rate 3.0 3.0 06/16/20 06/16/20 06/16/20 06/16/20 00:22 04:20 08:00 08:12 Temp 98.5 98.5 98.5 98.5 Pulse 85 95 121 Resp 19 22 36 B/P (MAP) 119/66 (83) 106/81 (89) 137/93 (108) Pulse Ox 96 95 91 O2 Delivery Room Air Room Air Nasal Cannula Room Air O2 Flow Rate 2.0 2.0 06/16/20 12:09 Temp 98.5 98.5 Pulse 121 Resp 30 B/P (MAP) 133/77 (95) Pulse Ox 94 O2 Delivery Room Air O2 Flow Rate 2.0 Intake and Output 06/15/20 06/15/20 06/16/20 15:00 23:00 07:00 Intake Total 1799 ml Output Total 145 ml 200 ml 1000 ml Balance -145 ml 1599 ml -1000 ml Justicifation of Admission Dx: Justifications for Admission: Justification of Admission Dx: N/A AVERY BURGOS MD Jun 16, 2020 12:50
--- NOTE | 2020-06-16 13:09 | PN ---
DATE: 06/15/2020 SUBJECTIVE: The patient was transferred yesterday from [facility] where she presented with altered mental status. She has no gag reflex and was unable to protect her airway. She was intubated. Her toxic screen was positive only for benzodiazepine. Her blood sugar was 154. She did not respond to Narcan, and therefore, she was intubated and was transferred to [facility] ICU to continue mechanical ventilation and for further evaluation. Her toxic screen was only positive for benzodiazepine; however, the patient is known to have had suicidal attempts before and the last one was on 04/13/2020, and at that time, she was transferred to the [facility]. When I saw her this morning, she continued to be intubated and mechanically ventilated, maintaining her oxygen saturation at 99% on FiO2 of 35%. She definitely is moving all her extremities spontaneously and responding to painful stimuli. She withdraws to painful stimuli to her toes or fingers. OBJECTIVE: GENERAL: When I examined her, she looked well and was clearly in no apparent respiratory distress. No pallor, jaundice, cyanosis, or thyromegaly. No jugular venous distention or limb edema. VITAL SIGNS: Her heart rate was 98, blood pressure was 112/66, temperature was 98.4, respiratory rate was 18, and oxygen saturation is 100% on FiO2 of 35%. HEAD, EYES, EARS, NOSE, AND THROAT: Normocephalic, atraumatic. NECK: Supple. HEART: Normal first and second heart sounds. No gallop or murmur. CHEST: Clear to auscultation, no crepitation or rhonchi. ABDOMEN: Distended, soft, nontender. NEUROLOGIC: She is sedated; however, she is moving all her extremities spontaneously. She does respond to painful stimuli. Her intake and output are incompletely recorded. LABORATORY DATA: Her lab work is still pending at the time of this dictation. Her blood gases showed a pH of 7.48, pCO2 of 28, pO2 of 141, bicarbonate 21, and oxygen saturation was 99% on FiO2 of 35%. We did order labs including CBC, CMP as well as troponin as her troponin was slightly high at 0.125. Her blood pressure was actually on the lower side, so I gave her a liter of normal saline, to continue at 100 mL per hour. Her labs are still pending at the time of this dictation. I did consult the firefighter marine as well as the neurologist, who will do also two more sets of troponin. ASSESSMENT: 1. Altered mental status, the cause of which is not very clear. Her toxic screen was positive for benzodiazepine. 2. The patient is known to have suicidal attempts before; however, toxic screen was positive only for benzodiazepine. 3. The patient is known to have anxiety, depression, and schizophrenia. 4. She is also known to have chronic back pain. PLAN: To continue with mechanical ventilation. Continue with IV fluid for now. She is afebrile since she arrived here. LENKA/JOSE DR: Evgeny TID: [id number]
--- NOTE | 2020-06-16 13:46 | CONS ---
DATE OF CONSULTATION: 06/15/2020 ATTENDING PHYSICIAN: Dr. Baptiste. CONSULTING PHYSICIAN: Dr. Gan. REASON FOR CONSULTATION: The patient is seen in Pulmonary consultation at the request of Dr. Baptiste for vent management. HISTORY OF PRESENT ILLNESS: The patient is a 54-year-old, who was found unresponsive by her son. She has been seen by Neurology. She is currently being treated for toxic encephalopathy, overdose on benzodiazepines. No evidence of stroke or seizure activity. Overnight, the patient has been hemodynamically stable. No fever was recorded. PAST MEDICAL HISTORY: Depression, schizophrenia, anxiety and hepatitis. She had been hospitalized at [facility] in the past. FAMILY HISTORY: Unknown. CURRENT MEDICATIONS: List was reviewed. ALLERGIES: Listed to AMITRIPTYLINE. REVIEW OF SYSTEMS: Unobtainable secondary to the patient's condition. PHYSICAL EXAMINATION: VITAL SIGNS: Stable. O2 saturation was greater than 92%, currently on assist control ventilation. GENERAL: She is sedated. Despite sedation, she is moving all her extremities, both upper and lower extremities. She is requiring mittens for safety reasons. HEENT: Eyes: The sclerae were nonicteric. NECK: Jugular venous distention was not elevated. No lymphadenopathy. CHEST: Full expansion. LUNGS: Adequate flow with no wheezes. CARDIOVASCULAR: Regular rate and rhythm with S1, S2. No S3. ABDOMEN: Soft, nontender. EXTREMITIES: No clubbing, cyanosis or pitting edema. NEUROLOGIC: The patient was sedated. LABORATORY DATA: Arterial blood gas: pH of 7.44, paCO2 of 33, and pO2 of 149. White count was normal. Electrolytes were noted. BUN and creatinine were normal. Chest x-ray revealed no infiltrates. ET tube was above the martiat. IMPRESSION: 1. Acute respiratory failure secondary to benzodiazepine overdose. 2. Toxic encephalopathy. 3. History of depression and schizophrenia. 4. Hemodynamically stable. 5. Mild elevation in troponin. 6. Fever, currently afebrile. PLAN: 1. We will discontinue sedation, proceed with extubation. 2. Follow Neurology input. 3. The patient has been afebrile since admission to [facility], we will continue to monitor. 4. Once the patient is extubated, proceed with diet. I do appreciate the privilege in sharing in the patient's care. Total cumulative critical care time of 40 minutes reviewing the current documentation, labs, chest x-ray and formulating the plan. MARIBEL/ROSEANN DR: Foreign TID: [id number]
[2020-06-16] MEDS: OLANZapine IM 10 MG VIAL. IM PRN ×2 (14:06→17:51)
[2020-06-16] MEDS: HALOPERIDOL LACTATE 5 MG/ML VIAL. IVP PRN (15:19)
[2020-06-16 16:05] VITALS: BP 171/84
--- NOTE | 2020-06-16 17:25 | NUR ---
pt has been restless and agitated all day. have given both the haldol and the IM zyprexa and neither calms her down enough for her to sleep. She yells out and has occasionally threatened to hit me, due to me touching her or being too loud. Her sister Candi came to visit with her today, I got both Candi and Med (pt's son, whom pt lives with) phone numbers and they are written on the nurse's report. Candi informed me of some of the pt's behaviors as her baseline. She hits and yells at people normally. Pt has made numerous overdose attempts with pills and cutting own wrists. Pt will steal her own son's medication. Candi the sister wanted to let us know that the pt will ask for her addarol refilled. We can call the son Med and he can get a med list for the pt. Luis Angel Tsang RN
[2020-06-16 20:13] VITALS: BP 131/73
--- NOTE | 2020-06-16 21:04 | PN ---
DATE: 06/16/2020 SUBJECTIVE: The patient was successfully extubated yesterday; however, she continued to be extremely confused, moaning and groaning, restless, agitated. PHYSICAL EXAMINATION: GENERAL: When I examined her, she was resting flat in bed, in no apparent respiratory distress, pale, not jaundiced or cyanosed. No thyromegaly, no jugular venous distention. No limb edema. VITAL SIGNS: Her heart rate was 95, blood pressure 106/81, temperature was 98.5, respiratory rate was 22 and oxygen saturation was 95%. HEAD, EYES, EARS, NOSE AND THROAT: Normocephalic, atraumatic. NECK: Supple. HEART: Showed normal first and second sounds. No gallop or murmur. CHEST: Clear to auscultation. No crepitation or rhonchi. ABDOMEN: Distended, soft, nontender. NEUROLOGIC: She is awake, alert, mumbling words, but seems to be very confused, restless, agitated. All her cranial nerves seem to be grossly intact. She moves all extremities spontaneously without difficulty. Her intake over the last 24 hours was 281 and output was 225. LABORATORY DATA: Her lab work this morning showed a white cell count of 10,300, hemoglobin 11, hematocrit 33, MCV 91, and platelet count of 187,000. Her serum sodium was 143, potassium 4.1, chloride 109, bicarbonate 24, anion gap of 10, BUN 16 and creatinine 0.7. Estimated GFR was 87 mL per minute. Her glucose 101 and calcium was 8.9. Total bilirubin, AST, ALT and alkaline phosphatase are normal. Total protein 6.6, albumin was 2.7. Her blood gases as of yesterday showed a pH of 7.44, pCO2 of 33, pO2 of 149, bicarbonate 22, and her oxygen saturation was 99% on FiO2 of 35%. ASSESSMENT AND PLAN: 1. Altered mental status, likely due to benzodiazepine overdose. 2. Acute hypoxic respiratory failure, which required intubation and mechanical ventilation; however, she was successfully extubated. 3: Schizophrenia. 4. History of hepatitis C. 5. History of suicidal ideation and homicidal ideation. The last time she was evaluated at [facility] was on 04/13/2020 for suicidal or homicidal ideation. At that time, she was transferred to the [facility]. She is also known to be noncompliant with her medication. Unfortunately, we have nobody to talk to about her as I called the number on her face sheet for a Mr. Maged Akins, he is not answering. I left a message and so far I have not received any call back. Given her altered mental status, she is to be kept n.p.o. and continued with IV fluid. She is not safe to eat or drink anything for now. Once she is more awake, we can consult physical, occupational and speech therapy. Unfortunately, we were giving her more Ativan and this obviously interferes with her ability to awake up. VIKA/ELISABET/MERLIN DR: Evgeny TID: [id number]
[2020-06-17] VITALS (7 sets, daily range): BP systolic 103–167; BP diastolic 64–108
[2020-06-17] MEDS: HALOPERIDOL LACTATE 5 MG/ML VIAL. IVP PRN (01:22)
[2020-06-17 04:58] LABS: HEMATOCRIT 33.5 % (36.0-47.0); HEMOGLOBIN 11.1 g/dL (12.0-15.5); RED BLOOD COUNT 3.7 x10^6/uL (3.50-5.40); RED CELL DISTRIBUTION WIDTH 13.9 % (11.5-14.5); WHITE BLOOD COUNT 13.6 x10^3/uL (4.0-11.0)
[2020-06-17 05:36] LABS: ALBUMIN 2.2 g/dL (3.4-5.0); ALBUMIN/GLOBULIN RATIO 0.6 (1.0-1.7); CALCIUM 8.5 mg/dL (8.5-10.1); CREATININE 0.7 mg/dL (0.6-1.0); GFR 87.5; POTASSIUM 3.8 mmol/L (3.5-5.1); TOTAL BILIRUBIN 0.8 mg/dL (0.2-1.0); TOTAL PROTEIN 6.2 g/dL (6.4-8.2)
--- NOTE | 2020-06-17 06:09 | PDOC ---
PULMONARY PROGRESS NOTES DATE: 06/17/20 TIME: 06:08 Subjective ext 06/15, on RA agitated moaning confused Vitals Vital Signs Date Time Temp Pulse Resp B/P (MAP) Pulse Ox O2 Delivery O2 Flow Rate FiO2 06/17/20 04:11 98.6 112 24 148/77 (100) Nasal Cannula 2.0 98.6 06/16/20 16:05 94 General: Lethargic HEENT: Other Lungs: Crackles Cardiovascular: S1, S2 Abdomen: Soft, Non-tender Extremities: No Edema Skin: Warm Labs Laboratory Tests Test 06/15/20 07:45 06/15/20 08:44 06/15/20 12:25 06/16/20 05:00 O2 Saturation 99 % (92-99) Arterial Blood pH 7.44 (7.35-7.45) Arterial Blood pCO2 at Patient Temp 33 mmHg (35-46) Arterial Blood pO2 at Patient Temp 149 mmHg (75-108) Arterial Blood HCO3 22 mmol/L (21-28) Arterial Blood Base Excess -2 mmol/L (-3-3) FiO2 35 White Blood Count 12.6 x10^3/uL (4.0-11.0) 10.3 x10^3/uL (4.0-11.0) Red Blood Count 3.83 x10^6/uL (3.50-5.40) 3.66 x10^6/uL (3.50-5.40) Hemoglobin 11.3 g/dL (12.0-15.5) 11.1 g/dL (12.0-15.5) Hematocrit 34.2 % (36.0-47.0) 33.3 % (36.0-47.0) Mean Corpuscular Volume 89 fL (79-100) 91 fL (79-100) Mean Corpuscular Hemoglobin 30 pg (25-35) 30 pg (25-35) Mean Corpuscular Hemoglobin Concent 33 g/dL (31-37) 34 g/dL (31-37) Red Cell Distribution Width 14.1 % (11.5-14.5) 14.0 % (11.5-14.5) Platelet Count 205 x10^3/uL (140-400) 187 x10^3/uL (140-400) Neutrophils (%) (Auto) 65 % (31-73) Lymphocytes (%) (Auto) 26 % (24-48) Monocytes (%) (Auto) 8 % (0-9) Eosinophils (%) (Auto) 1 % (0-3) Basophils (%) (Auto) 0 % (0-3) Neutrophils # (Auto) 8.2 x10^3/uL (1.8-7.7) Lymphocytes # (Auto) 3.3 x10^3/uL (1.0-4.8) Monocytes # (Auto) 1.0 x10^3/uL (0.0-1.1) Eosinophils # (Auto) 0.1 x10^3/uL (0.0-0.7) Basophils # (Auto) 0.1 x10^3/uL (0.0-0.2) Sodium Level 143 mmol/L (136-145) 143 mmol/L (136-145) Potassium Level 4.1 mmol/L (3.5-5.1) 4.1 mmol/L (3.5-5.1) Chloride Level 108 mmol/L (98-107) 109 mmol/L (98-107) Carbon Dioxide Level 25 mmol/L (21-32) 24 mmol/L (21-32) Anion Gap 10 (6-14) 10 (6-14) Blood Urea Nitrogen 17 mg/dL (7-20) 16 mg/dL (7-20) Creatinine 0.7 mg/dL (0.6-1.0) 0.7 mg/dL (0.6-1.0) Estimated GFR (Cockcroft-Gault) 87.5 87.5 Glucose Level 118 mg/dL (70-99) 101 mg/dL (70-99) Calcium Level 8.1 mg/dL (8.5-10.1) 8.9 mg/dL (8.5-10.1) Ammonia 17 mcmol/L (11-34) Troponin I Quantitative 0.275 ng/mL (0.000-0.055) 0.183 ng/mL (0.000-0.055) BUN/Creatinine Ratio 23 (6-20) Total Bilirubin 0.6 mg/dL (0.2-1.0) Aspartate Amino Transf (AST/SGOT) 62 U/L (15-37) Alanine Aminotransferase (ALT/SGPT) 56 U/L (14-59) Alkaline Phosphatase 93 U/L (46-116) Total Protein 6.6 g/dL (6.4-8.2) Albumin 2.7 g/dL (3.4-5.0) Albumin/Globulin Ratio 0.7 (1.0-1.7) Test 06/17/20 04:00 White Blood Count 13.6 x10^3/uL (4.0-11.0) Red Blood Count 3.70 x10^6/uL (3.50-5.40) Hemoglobin 11.1 g/dL (12.0-15.5) Hematocrit 33.5 % (36.0-47.0) Mean Corpuscular Volume 90 fL (79-100) Mean Corpuscular Hemoglobin 30 pg (25-35) Mean Corpuscular Hemoglobin Concent 33 g/dL (31-37) Red Cell Distribution Width 13.9 % (11.5-14.5) Platelet Count 190 x10^3/uL (140-400) Sodium Level 139 mmol/L (136-145) Potassium Level 3.8 mmol/L (3.5-5.1) Chloride Level 106 mmol/L (98-107) Carbon Dioxide Level 26 mmol/L (21-32) Anion Gap 7 (6-14) Blood Urea Nitrogen 10 mg/dL (7-20) Creatinine 0.7 mg/dL (0.6-1.0) Estimated GFR (Cockcroft-Gault) 87.5 BUN/Creatinine Ratio 14 (6-20) Glucose Level 108 mg/dL (70-99) Calcium Level 8.5 mg/dL (8.5-10.1) Total Bilirubin 0.8 mg/dL (0.2-1.0) Aspartate Amino Transf (AST/SGOT) 113 U/L (15-37) Alanine Aminotransferase (ALT/SGPT) 47 U/L (14-59) Alkaline Phosphatase 80 U/L (46-116) Total Protein 6.2 g/dL (6.4-8.2) Albumin 2.2 g/dL (3.4-5.0) Albumin/Globulin Ratio 0.6 (1.0-1.7) Laboratory Tests Test 06/17/20 04:00 White Blood Count 13.6 x10^3/uL (4.0-11.0) Red Blood Count 3.70 x10^6/uL (3.50-5.40) Hemoglobin 11.1 g/dL (12.0-15.5) Hematocrit 33.5 % (36.0-47.0) Mean Corpuscular Volume 90 fL (79-100) Mean Corpuscular Hemoglobin 30 pg (25-35) Mean Corpuscular Hemoglobin Concent 33 g/dL (31-37) Red Cell Distribution Width 13.9 % (11.5-14.5) Platelet Count 190 x10^3/uL (140-400) Sodium Level 139 mmol/L (136-145) Potassium Level 3.8 mmol/L (3.5-5.1) Chloride Level 106 mmol/L (98-107) Carbon Dioxide Level 26 mmol/L (21-32) Anion Gap 7 (6-14) Blood Urea Nitrogen 10 mg/dL (7-20) Creatinine 0.7 mg/dL (0.6-1.0) Estimated GFR (Cockcroft-Gault) 87.5 BUN/Creatinine Ratio 14 (6-20) Glucose Level 108 mg/dL (70-99) Calcium Level 8.5 mg/dL (8.5-10.1) Total Bilirubin 0.8 mg/dL (0.2-1.0) Aspartate Amino Transf (AST/SGOT) 113 U/L (15-37) Alanine Aminotransferase (ALT/SGPT) 47 U/L (14-59) Alkaline Phosphatase 80 U/L (46-116) Total Protein 6.2 g/dL (6.4-8.2) Albumin 2.2 g/dL (3.4-5.0) Albumin/Globulin Ratio 0.6 (1.0-1.7) Comments cxr reviewed 1. Endotracheal tube is at the martita directed towards the right mainstem bronchus. Recommend retraction by a few centimeters even though the lungs are symmetrically aerated. 2. No newly seen abnormality of the chest. Impression . IMPRESSION: 1. Acute respiratory failure secondary to benzodiazepine overdose. 2. Toxic encephalopathy. 3. History of depression and schizophrenia. 4. Hemodynamically stable. 5. Mild elevation in troponin. 6. Fever, currently afebrile. Plan . 02 titration elevated hob avoid oversedation fall aspiration precaution Follow Neurology input. covid19 neg failed speech eval discussed w SERINA Jurado MD Jun 17, 2020 06:09
[2020-06-17] MEDS: ASPIRIN CHEWABLE 81 MG TABLET. PO SCH (08:00)
[2020-06-17] MEDS: AMINO AC 3%/ELECTROLYTE/GLYCER 1,000 ML IV SCH (10:52)
--- NOTE | 2020-06-17 11:13 | PDOC ---
Infectious Disease Note Vital Sign Vital Signs Vital Signs Date Time Temp Pulse Resp B/P (MAP) Pulse Ox O2 Delivery O2 Flow Rate FiO2 06/17/20 10:30 98.3 113 18 140/99 (113) Nasal Cannula 2.0 98.3 06/16/20 16:05 94 Labs Lab Laboratory Tests Test 06/17/20 04:00 White Blood Count 13.6 x10^3/uL (4.0-11.0) Red Blood Count 3.70 x10^6/uL (3.50-5.40) Hemoglobin 11.1 g/dL (12.0-15.5) Hematocrit 33.5 % (36.0-47.0) Mean Corpuscular Volume 90 fL (79-100) Mean Corpuscular Hemoglobin 30 pg (25-35) Mean Corpuscular Hemoglobin Concent 33 g/dL (31-37) Red Cell Distribution Width 13.9 % (11.5-14.5) Platelet Count 190 x10^3/uL (140-400) Sodium Level 139 mmol/L (136-145) Potassium Level 3.8 mmol/L (3.5-5.1) Chloride Level 106 mmol/L (98-107) Carbon Dioxide Level 26 mmol/L (21-32) Anion Gap 7 (6-14) Blood Urea Nitrogen 10 mg/dL (7-20) Creatinine 0.7 mg/dL (0.6-1.0) Estimated GFR (Cockcroft-Gault) 87.5 BUN/Creatinine Ratio 14 (6-20) Glucose Level 108 mg/dL (70-99) Calcium Level 8.5 mg/dL (8.5-10.1) Total Bilirubin 0.8 mg/dL (0.2-1.0) Aspartate Amino Transf (AST/SGOT) 113 U/L (15-37) Alanine Aminotransferase (ALT/SGPT) 47 U/L (14-59) Alkaline Phosphatase 80 U/L (46-116) Total Protein 6.2 g/dL (6.4-8.2) Albumin 2.2 g/dL (3.4-5.0) Albumin/Globulin Ratio 0.6 (1.0-1.7) Objective Assessment GPC bacteremia from 06/14. (2 of 4 bottles) source unclear. Leukocytosis Fever Encephalopathy Respiratory failure s/p extubation Schizophrenia Hypothyroidism Plan Plan of Care [facility] records reviewed. Dose vancomycin f/u BC from [facility] 06/14 Monitor WBC trend, temp and renal function closely Maintain aspiration precautions Discussed with nursing Thank you [phone] Rhonchi on Left - need to cover for aspiration - broaden to Cefepime and flagyl with increasing WBC and no evidence of Steroid use F/u labs and cults Attending Co-Sign Attending Co-Sign The patient was seen and interviewed as well as examined at the bedside. The chart was reviewed. The case was discussed. Agree with the plan of care. XAVI BARRETT APRN Jun 17, 2020 11:13 MATTHEW HAYDEN MD Jun 17, 2020 16:15
[2020-06-17] MEDS ORDERED: VANCOMYCIN 2 GM in IV NORMAL SALINE 500ML BAG 500 ML IV ONE (12:00)
--- NOTE | 2020-06-17 12:16 | CONS ---
DATE OF CONSULTATION: 06/17/2020 REFERRING PHYSICIAN: Marychuy Baptiste MD REASON FOR CONSULTATION: Positive blood cultures. HISTORY OF PRESENT ILLNESS: This patient is a 54-year-old female who has a history of schizophrenia. She presented to [facility] ER in [place] after she was found in the bathroom nonresponsive and twitching. She was intubated for airway protection. She was given a dose of Narcan without response. She was found to have a fever of 101.5. WBC count 11,000. Her urine toxicology was positive for benzodiazepines and salicylate. Her urinalysis was unremarkable for infection. Head CT showed no acute intracranial abnormality and a chest x-ray showed mild appearing volume loss at the left lung base. She was started on ceftriaxone prior to transferring to [place] for further care. The patient has since been extubated. She has remained afebrile over the last 24 hours. Her blood cultures from the now show gram-positive cocci in 2/4 bottles, hence ID consult. PAST MEDICAL HISTORY: Schizophrenia, history of hepatitis C, anxiety, depression, multiple episodes of suicidal ideation and homicidal ideation. Spent time in [facility]. PAST SURGICAL HISTORY: Unobtainable. FAMILY HISTORY: Noncontributory. SOCIAL HISTORY: The patient lives at home. ALLERGIES: AMITRIPTYLINE. MEDICATIONS: Reviewed on the APR. She is currently not on any antibiotics. Previously on ceftriaxone. REVIEW OF SYSTEMS: Unobtainable due to confusion. PHYSICAL EXAMINATION: VITAL SIGNS: Temperature 98.3, blood pressure 140/99, heart rate 113, respiratory rate 18, pulse oximetry is 94% on 2 liters. GENERAL: The patient is in bed, awake, fidgety, with mittens on. HEENT: Pupils equally round, reactive. Normal conjunctivae. Oropharynx is very dry with some buildup of dry secretions. NECK: Supple. LUNGS: Clear to auscultation. No accessory muscle use. HEART: Normal S1 and S2, regular. ABDOMEN: Obese, soft, nontender with bowel sounds present. GENITOURINARY: Indwelling Kohli in place. EXTREMITIES: No gross edema or cyanosis. Peripheral IV looks okay. SCDs bilaterally. SKIN: Warm to touch. No signs of rash. NEUROLOGIC: Awake. Speech is muffled. LABORATORY DATA: Today's WBC 13.6, hemoglobin 11.1, platelets 190,000. Sodium 139, potassium 3.8, creatinine 0.7, BUN 10, glucose 108, AST 113, ALT 47, total bilirubin 0.8. Ammonia is 17. Troponin 0.183, albumin 2.2. TSH 5.222. Recent chest x-ray showed no newly seen abnormality of the chest. IMPRESSION: 1. Gram-positive cocci bacteremia from 06/14/2020 (2/4 bottles), source unclear. 2. Leukocytosis. 3. Fever. 4. Encephalopathy. 5. Respiratory failure, improved, status post extubation. 6. Schizophrenia. 7. Hypothyroidism. PLAN: 1. Records from [facility] were reviewed. 2. Recommend vancomycin. 3. Follow up blood cultures. GPC identification is still pending. 4. Monitor WBC trend, temperature and renal function closely. 5. Maintain aspiration precautions. 6. Discuss with nursing. Thank you, Dr. Baptiste, for asking us to participate in this patient's care. Should you have further questions or concerns, please call. CHRISTINE/CRAIG LANDIN: CHRISTINE/dhruv TID: [id number]
--- NOTE | 2020-06-17 13:16 | PN ---
DATE: 06/17/2020 SUBJECTIVE: The patient is slightly propped up in bed, continued to be very confused, restless, agitated, mumbles her words, difficult to understand what she is talking about. I attempted to speak with her significant other, but left messages and nobody has called me. She has apparently a son that found her, but we have no numbers to talk to him. She failed her swallowing evaluation and she continued to be on procalamine for now. PHYSICAL EXAMINATION GENERAL: When I examined her, she looked well and was in no apparent respiratory distress. She was pale, but no jaundice, cyanosis or thyromegaly. No jugular distention. No limb edema. VITAL SIGNS: Heart rate was 104, blood pressure is 126/89, temperature was 98.6, respiratory rate was 18 and oxygen saturation was 94%. HEENT: Normocephalic, atraumatic. NECK: Supple. HEART: Showed normal first and second heart sounds, no gallop, rub or murmur. CHEST: Clear to auscultation. No crepitation or rhonchi. ABDOMEN: Distended, soft, nontender. NEUROLOGIC: She is very confused, but without any obvious lateralizing sign. All other cranial nerves intact. She moves extremities spontaneously. Her intake over the last 24 hours was 1800. Output was 1345. LABORATORY DATA: Today's labs showed a white cell count of 13,600, hemoglobin 11, hematocrit 33, MCV 90 and platelet count of 190,000. Her chemistry showed a serum sodium 139, potassium 3.8, chloride 106, bicarbonate 26, anion gap of 7, BUN 10, creatinine 0.7. Estimated GFR was 87 mL per minute. Her glucose 108, calcium was 8.5, total bilirubin, ALT, alkaline phosphatase are normal. AST slightly elevated. Her total protein was 6.2, albumin was 2.2. ASSESSMENT: 1. Altered mental status, likely due to benzodiazepine overdose. 2. Acute hypoxic respiratory failure requiring intubation and mechanical ventilation; however, she was successfully extubated. 3: Schizophrenia. 3. History of hepatitis C; however, liver enzymes and ammonia prothrombin time are all within normal range except slightly elevated AST. 4. History suicidal ideation, homicidal ideation. Currently, she was admitted to the [facility] in 04/13/2020. 5. She is known to be noncompliant with her medication. I did leave a message with Mr. Maged Corbett, however, he has not answered or call me back. She apparently has a son, however, his numbers are not available to talk to, I will consult the embedded case manager, social work therapist to look into this. Meanwhile, she should continue with procalamine. Continue with SCDs and I will also consult the Infectious Disease to see whether it is necessary to start this as she grew gram-positive cocci in 2/4 bottles. VIKA/HE/JEREMY DR: Evgeny TID: [id number]
[2020-06-17] MEDS: VANCOMYCIN PER PHARMACY MC PRN ×2 (14:29→14:38)
--- NOTE | 2020-06-17 14:36 | NUR ---
Pharmacy Vancomycin Dosing Note S:Consulted to monitor and dose vancomycin started 06/17/20. O:SWATHI GARCIA is a 54 year old F with Empiric . Height: 5 feet, 5 inches Weight: 84.1 kg [place] Body Weight: 57.00 Adjusted Body Weight: 67.84 Dosing Weight: Actual Other Antibiotics: LABS: Last BUN: 10 Last Creatinine: 0.7 Creatinine Clearance: 99 mL/min Last WBC: 13.6 Last Procalcitonin: Tmax (past 24 hours): 99.2 Microbiology: I/O: 560/2300 Drug Levels: Last level: on at Last dose given 06/17/20 at 1310 Vancomycin Dosing: Loading Dose: 2000 mg x1 Dosing Weight: Actual Target Trough: 15-20 A: Based on weight and est. CrCl: P: 1. Vancomycin 2000mg, followed by Vancomycin 1250 mg IV q12h 2. Follow up Trough level on 06/19/20 at 0030. 3. Pharmacy will continue to monitor, follow and adjust therapy as needed. Anuj Jo, [facility], 06/17/20 [id number]
[2020-06-17] MEDS: metroNIDAZOLE 500 MG TABLET PO SCH (22:00)
[2020-06-17] MEDS: CEFEPIME HCL IV Push 1 GM VIAL. IVP SCH (22:42)
[2020-06-18] MEDS ORDERED: VANCOMYCIN 1.25 GM in IV NORMAL SALINE 250ML 250 ML IV SCH (01:00)
[2020-06-18] MEDS: HALOPERIDOL LACTATE 5 MG/ML VIAL. IVP PRN (01:33)
[2020-06-18] MEDS: AMINO AC 3%/ELECTROLYTE/GLYCER 1,000 ML IV SCH ×2 (01:34→11:00)
[2020-06-18 03:00] VITALS: BP 111/81
[2020-06-18] MEDS: CEFEPIME HCL IV Push 1 GM VIAL. IVP SCH ×3 (06:00→22:00)
[2020-06-18] MEDS: metroNIDAZOLE 500 MG TABLET PO SCH ×3 (06:00→21:26)
[2020-06-18 07:00] VITALS: BP 161/104
[2020-06-18] MEDS: ASPIRIN CHEWABLE 81 MG TABLET. PO SCH (07:04)
--- NOTE | 2020-06-18 09:42 | PDOC ---
Infectious Disease Note Subjective: Subjective Patient sitting up in chair Restless, mumbles Follows a few commands Vital Signs: Vital Signs Vital Signs Date Time Temp Pulse Resp B/P (MAP) Pulse Ox O2 Delivery O2 Flow Rate FiO2 06/18/20 07:00 96.5 119 18 161/104 (123) 96.5 06/17/20 23:00 Nasal Cannula 2.0 Physical Exam: PHYSICAL EXAM GENERAL: The patient is in bed, awake, fidgety, with mittens on. HEENT: Pupils equally round, reactive. Normal conjunctivae. Oropharynx is very dry NECK: Supple. LUNGS: Clear to auscultation. No accessory muscle use. HEART: S1 and S2, regular. ABDOMEN: Obese, soft, nontender with bowel sounds present. GENITOURINARY: Indwelling Kohli present EXTREMITIES: No gross edema or cyanosis. Peripheral IV looks okay. SCDs bilaterally. SKIN: Warm to touch. No signs of rash. NEUROLOGIC: Awake. Speech is muffled. Medications: Inpatient Meds: Medications reviewed. Objective: Assessment: 1. Gram-positive cocci bacteremia from 06/14/2020 (2/4 bottles) 2. Leukocytosis. 3. Fever. 4. Encephalopathy. 5. Respiratory failure, improved, status post extubation. 6. Schizophrenia. 7. Hypothyroidism. Plan: Plan of Care Awaiting swallow evaluation Continue vancomycin, cefepime and Flagyl f/u BC from [facility] 06/14 Follow-up labs and cultures Maintain aspiration precautions Discussed with nursing WILLIAM BYRNE MD Jun 18, 2020 09:42
--- NOTE | 2020-06-18 10:25 | PDOC ---
PULMONARY PROGRESS NOTES DATE: 06/18/20 TIME: 10:22 Subjective ext 06/15, on RA awake and alert no overnight concerns Vitals Vital Signs Date Time Temp Pulse Resp B/P (MAP) Pulse Ox O2 Delivery O2 Flow Rate FiO2 06/18/20 07:00 96.5 119 18 161/104 (123) 96.5 06/17/20 23:00 Nasal Cannula 2.0 ROS: No Nausea, No Chest Pain, No Abdominal Pain, No Increase Cough General: Alert, Oriented X4 HEENT: Other Lungs: Crackles Cardiovascular: S1, S2 Abdomen: Soft, Non-tender Neuro Exam: Alert, Oriented Extremities: No Edema Skin: Warm Labs Laboratory Tests Test 06/17/20 04:00 White Blood Count 13.6 x10^3/uL (4.0-11.0) Red Blood Count 3.70 x10^6/uL (3.50-5.40) Hemoglobin 11.1 g/dL (12.0-15.5) Hematocrit 33.5 % (36.0-47.0) Mean Corpuscular Volume 90 fL (79-100) Mean Corpuscular Hemoglobin 30 pg (25-35) Mean Corpuscular Hemoglobin Concent 33 g/dL (31-37) Red Cell Distribution Width 13.9 % (11.5-14.5) Platelet Count 190 x10^3/uL (140-400) Sodium Level 139 mmol/L (136-145) Potassium Level 3.8 mmol/L (3.5-5.1) Chloride Level 106 mmol/L (98-107) Carbon Dioxide Level 26 mmol/L (21-32) Anion Gap 7 (6-14) Blood Urea Nitrogen 10 mg/dL (7-20) Creatinine 0.7 mg/dL (0.6-1.0) Estimated GFR (Cockcroft-Gault) 87.5 BUN/Creatinine Ratio 14 (6-20) Glucose Level 108 mg/dL (70-99) Calcium Level 8.5 mg/dL (8.5-10.1) Total Bilirubin 0.8 mg/dL (0.2-1.0) Aspartate Amino Transf (AST/SGOT) 113 U/L (15-37) Alanine Aminotransferase (ALT/SGPT) 47 U/L (14-59) Alkaline Phosphatase 80 U/L (46-116) Total Protein 6.2 g/dL (6.4-8.2) Albumin 2.2 g/dL (3.4-5.0) Albumin/Globulin Ratio 0.6 (1.0-1.7) Impression . IMPRESSION: 1. Acute respiratory failure secondary to benzodiazepine overdose--resolved now on room air 2. Toxic encephalopathy--improved 3. History of depression and schizophrenia. 4. Hemodynamically stable. 5. Mild elevation in troponin. 6. Fever, currently afebrile. Plan . stable from respiratory stand point, remains on room air elevated hob ABX per ID avoid oversedation fall aspiration precaution Follow Neurology input covid19 neg failed speech eval, continue PPN for nutritional discussed w rn we will sign off at this time thank you JORGE L ZACARIAS MD Jun 18, 2020 10:25
[2020-06-18 10:28] VITALS: BP 147/97
--- NOTE | 2020-06-18 10:43 | PDOC ---
PROGRESS NOTES Date of Service DATE: 06/18/20 TIME: 10:42 Assessment Toxic encephalopathy, overdose of benzodiazepines suspected, patient is coming around. I see no evidence of stroke or seizure activity Extubated 06/15 Schizophrenia. Leukocytosis, fever, hypothyroidism. Plan Observation Holding on additional neurological studies such as electroencephalogram and MRI. Subjective None Objective Vital Signs Date Time Temp Pulse Resp B/P (MAP) Pulse Ox O2 Delivery O2 Flow Rate FiO2 06/18/20 10:28 97.8 113 18 147/97 (114) 97.8 06/17/20 23:00 Nasal Cannula 2.0 Intake and Output 06/18/20 07:00 Output Total 3050 ml Balance -3050 ml Output Urine Total 3050 ml PHYSICAL EXAM Eyes open, mumbles replies, follows a few commands, does not know date or location PERRL. EOMI. CN: no focal findings. Muscle tone: normal. Muscle strength: Moves all extremities DTR: 2+ Plantar reflex: Flexor Gait: not examined in bed. Sensory exam: Responds to pinprick in all 4 extremities Cerebellar: Not cooperative Review of Relevant I have reviewed the following items latha (where applicable) has been applied. Labs Laboratory Tests Test 06/17/20 04:00 White Blood Count 13.6 x10^3/uL (4.0-11.0) Red Blood Count 3.70 x10^6/uL (3.50-5.40) Hemoglobin 11.1 g/dL (12.0-15.5) Hematocrit 33.5 % (36.0-47.0) Mean Corpuscular Volume 90 fL (79-100) Mean Corpuscular Hemoglobin 30 pg (25-35) Mean Corpuscular Hemoglobin Concent 33 g/dL (31-37) Red Cell Distribution Width 13.9 % (11.5-14.5) Platelet Count 190 x10^3/uL (140-400) Sodium Level 139 mmol/L (136-145) Potassium Level 3.8 mmol/L (3.5-5.1) Chloride Level 106 mmol/L (98-107) Carbon Dioxide Level 26 mmol/L (21-32) Anion Gap 7 (6-14) Blood Urea Nitrogen 10 mg/dL (7-20) Creatinine 0.7 mg/dL (0.6-1.0) Estimated GFR (Cockcroft-Gault) 87.5 BUN/Creatinine Ratio 14 (6-20) Glucose Level 108 mg/dL (70-99) Calcium Level 8.5 mg/dL (8.5-10.1) Total Bilirubin 0.8 mg/dL (0.2-1.0) Aspartate Amino Transf (AST/SGOT) 113 U/L (15-37) Alanine Aminotransferase (ALT/SGPT) 47 U/L (14-59) Alkaline Phosphatase 80 U/L (46-116) Total Protein 6.2 g/dL (6.4-8.2) Albumin 2.2 g/dL (3.4-5.0) Albumin/Globulin Ratio 0.6 (1.0-1.7) Medications Current Medications Sodium Chloride 1,000 ml @ 100 mls/hr Q10H IV Last administered on 06/15/20at 08:52; Start 06/15/20 at 03:15; Stop 06/15/20 at 19:06; Status DC Propofol 100 ml @ 2.508 mls/ hr CONT PRN IV PER PROTOCOL Last administered on 06/15/20at 07:26; Start 06/15/20 at 03:30; Stop 06/16/20 at 08:14; Status DC Aspirin (Aspirin Chewable) 81 mg 1X ONCE PO ; Start 06/15/20 at 11:30; Stop 06/15/20 at 11:31; Status DC Aspirin (Aspirin Chewable) 81 mg [id number] PO ; Start 06/16/20 at 08:00 Lorazepam (Ativan Inj) 1 mg PRN Q4HRS PRN IVP ANXIETY / AGITATION Last administered on 06/16/20at 07:49; Start 06/15/20 at 20:30; Stop 06/16/20 at 08:14; Status DC Olanzapine (ZyPREXA IM) 2.5 mg PRN Q4HRS PRN IM AGITATION Last administered on 06/16/20at 17:51; Start 06/16/20 at 08:00 Amino Acids/ Glycerin/ Electrolytes 1,000 ml @ 80 mls/hr [id number] IV Last administered on 06/18/20at 01:34; Start 06/16/20 at 09:00 Haloperidol Lactate (Haldol Inj) 5 mg PRN Q4HRS PRN IVP AGITATION Last administered on 06/18/20at 01:33; Start 06/16/20 at 15:15 Vancomycin HCl (Vanco Per Pharmacy) 1 each PRN DAILY PRN MC SEE COMMENTS Last administered on 06/17/20at 14:38; Start 06/17/20 at 11:00 Vancomycin HCl 2 gm/Sodium Chloride 500 ml @ 250 mls/hr 1X ONCE IV Last administered on 06/17/20at 13:10; Start 06/17/20 at 12:00; Stop 06/17/20 at 13:59; Status DC Vancomycin HCl 1.25 gm/Sodium Chloride 250 ml @ 167 mls/hr Q12H IV Last administered on 06/18/20at 01:38; Start 06/18/20 at 01:00 Vancomycin HCl (Vancomycin Trough Level) 1 each 1X ONCE MC ; Start 06/19/20 at 00:30; Stop 06/19/20 at 00:31 Cefepime HCl (Maxipime) 1 gm Q8HRS IVP Last administered on 06/18/20at 06:00; Start 06/17/20 at 22:00 Metronidazole (Flagyl) 500 mg Q8HRS PO ; Start 06/17/20 at 22:00 Vitals/I & O Vital Sign - Last 24 Hours 06/17/20 06/17/20 06/17/20 06/17/20 14:30 19:00 19:42 23:00 Temp 99.0 98.6 98.2 99.0 98.6 98.2 Pulse 116 121 120 Resp 18 18 18 B/P (MAP) 130/108 (115) 103/64 (77) 121/71 (88) O2 Delivery Nasal Cannula Nasal Cannula Nasal Cannula Nasal Cannula O2 Flow Rate 2.0 2.0 2.0 2.0 06/18/20 06/18/20 06/18/20 03:00 07:00 10:28 Temp 98.2 96.5 97.8 98.2 96.5 97.8 Pulse 119 119 113 Resp 18 18 18 B/P (MAP) 111/81 (91) 161/104 (123) 147/97 (114) Intake and Output 06/17/20 06/17/20 06/18/20 15:00 23:00 07:00 Output Total 1250 ml 1800 ml Balance -1250 ml -1800 ml Justicifation of Admission Dx: Justifications for Admission: Justification of Admission Dx: N/A AVERY BURGOS MD Jun 18, 2020 10:43
--- NOTE | 2020-06-18 11:57 | PN ---
DATE: 06/18/2020 SUBJECTIVE: The patient continued to be very confused, apparently has been aggressive this morning, hitting on the nurses and she was given Haldol last night once, became very restless, agitated and also has now mittens as she attempts to pull out her IV line. She was seen yesterday by the Infectious Disease specialist and now was started on vancomycin. On questioning her this morning, she continued to be extremely confused and sometimes difficult to understand. She could not remember her son's telephone number, although she acknowledged that he lives with her. PHYSICAL EXAMINATION: GENERAL: When I examined her this morning, she looked well and was clearly in no apparent respiratory distress. There was no pallor, jaundice, cyanosis, or thyromegaly. No jugular venous distention. No lower limb edema. VITAL SIGNS: Her heart rate was 119, blood pressure was 161/104, temperature was 96.5, respiratory rate was 18 and oxygen saturation was 96% on 2 liters of oxygen. HEENT: Showed normocephalic, atraumatic. NECK: Supple. HEART: Showed normal first and second heart sounds. No gallop, rub or murmur. CHEST: Clear to auscultation. No crepitation or rhonchi. ABDOMEN: Distended, soft, nontender. NEUROLOGIC: She is definitely more awake, alert, continued to be confused, difficult to understand at times, restless, agitated, combative and aggressive. LABORATORY DATA: As of yesterday, her white cell count was up to 13,600, hemoglobin 11, hematocrit 33, MCV 90 and platelet count of 190,000. Her chemistry showed a serum sodium 139, potassium 3.8, chloride 106, bicarbonate 26, anion gap of 7, BUN 10, creatinine 0.7. Estimated GFR was 87 mL per minute. Her glucose was 108, calcium was 8.5. Total bilirubin, ALT, alkaline phosphatase are normal. AST was slightly elevated. Total protein was 6.2, albumin was 2.2. Her blood cultures done at [facility] showed growth of gram-positive cocci in clusters in 2/, however, the identification and sensitivity is still pending at the time of this dictation. ASSESSMENT: 1. Altered mental status, likely due to benzodiazepine overdose. 2. Acute hypoxic respiratory failure, requiring intubation and mechanical ventilation. The patient, however, was successfully extubated. 3: Schizophrenia. 3. History of hepatitis C; however, liver enzymes and ammonia, prothrombin time are all within normal range except slightly elevated AST. 4. The patient is known to have history of suicidal and homicidal ideation and apparently was admitted to ____ on 04/13/2020. 5. She is known to be noncompliant with her medication. 6. She grew gram-positive cocci in two bottles out of four. Unfortunately, we do not have the identification and sensitivity and she was seen yesterday by the Infectious Disease specialist and she was started on vancomycin. 7. Dysphagia, for which she is currently on procalamine. She will be seen again by the speech therapist today to see whether she can eat. PLAN: To obviously to continue with procalamine. Continue with the mittens. Continue with IV vancomycin and adjust as per pharmacy adjustment. Once we have the culture and identification and sensitivity, we will obviously adjust the antibiotics accordingly. PUSHPA DR: Evgeny TID: [id number]
--- NOTE | 2020-06-18 13:20 | NUR ---
SW following. Discussed with RN, pt from home with son, 2L, NPO, IV abx. [facility]) meeting with pt to determine if pt is alert enough. Pt has been to OSH for HI and SI. Pt unable to remember her son's phone number, has been increasingly confused and combative today. [facility]CH will continue to follow. Addendum: 06/18/20 at 1519 by TATIANA MEYER Pt not appropriate to be seen by [facility]) yet. [facility] are faxing over pt's records.
[2020-06-18 14:21] VITALS: BP 148/77
--- NOTE | 2020-06-18 15:40 | NUR ---
Patient was found hiding knives and forks. Patient was upset when told that she could not hide these utensils. Patient became dysregulated and attempted to hit nurse. Patient verbally aggressive. Patient placed on a 1:1 .
[2020-06-18 19:14] VITALS: BP 130/80
[2020-06-18 23:00] VITALS: BP_SYST 130; BP_SYST 151; BP_DIAS 67; BP_DIAS 78
[2020-06-19] MEDS: AMINO AC 3%/ELECTROLYTE/GLYCER 1,000 ML IV SCH ×2 (02:03→12:00)
[2020-06-19 03:00] VITALS: BP 145/75
[2020-06-19] MEDS: CEFEPIME HCL IV Push 1 GM VIAL. IVP SCH (06:02)
[2020-06-19] MEDS: metroNIDAZOLE 500 MG TABLET PO SCH (06:02)
[2020-06-19 06:34] LABS: HEMATOCRIT 35.7 % (36.0-47.0); HEMOGLOBIN 11.8 g/dL (12.0-15.5); RED BLOOD COUNT 3.92 x10^6/uL (3.50-5.40); RED CELL DISTRIBUTION WIDTH 13.8 % (11.5-14.5); WHITE BLOOD COUNT 10.1 x10^3/uL (4.0-11.0)
[2020-06-19 07:00] VITALS: BP 131/90
[2020-06-19 07:06] LABS: ALBUMIN 2.5 g/dL (3.4-5.0); ALBUMIN/GLOBULIN RATIO 0.5 (1.0-1.7); CREATININE 0.8 mg/dL (0.6-1.0); POTASSIUM 4.3 mmol/L (3.5-5.1); TOTAL BILIRUBIN 0.7 mg/dL (0.2-1.0); TOTAL PROTEIN 7.5 g/dL (6.4-8.2)
[2020-06-19] MEDS: ASPIRIN CHEWABLE 81 MG TABLET. PO SCH (08:10)
[2020-06-19] MEDS: DOCUSATE SODIUM 100 MG CAPSULE. PO SCH ×2 (08:10→21:00)
[2020-06-19] MEDS: POLYETHYLENE GLYCOL 3350 17 GM PACKET. PO SCH (08:12)
--- NOTE | 2020-06-19 09:13 | PDOC ---
Infectious Disease Note Subjective: Subjective Patient is sleepy Discussed with RN Remains confused, intermittently agitated, pulls out IV :"Hiding silverware" Vital Signs: Vital Signs Vital Signs Date Time Temp Pulse Resp B/P (MAP) Pulse Ox O2 Delivery O2 Flow Rate FiO2 06/19/20 07:00 98.5 110 18 131/90 (104) 94 Room Air 98.5 06/18/20 08:00 2.0 Physical Exam: PHYSICAL EXAM GENERAL: Patient is sleepy, arousable appears comfortable HEENT: Pupils equally round, reactive. Normal conjunctivae. Oropharynx is very dry NECK: Supple. LUNGS: Clear to auscultation. No accessory muscle use. HEART: S1 and S2, regular. ABDOMEN: Obese, soft, nontender with bowel sounds present. GENITOURINARY: Indwelling Kohli present EXTREMITIES: No gross edema or cyanosis. Peripheral IV looks okay. SCDs bilaterally. SKIN: Warm to touch. No signs of rash. NEUROLOGIC: Sleepy but arousable appears comfortable moves all 4 extremities when awake Medications: Inpatient Meds: Medications reviewed. Labs: Lab Laboratory Tests Test 06/19/20 05:55 White Blood Count 10.1 x10^3/uL (4.0-11.0) Red Blood Count 3.92 x10^6/uL (3.50-5.40) Hemoglobin 11.8 g/dL (12.0-15.5) Hematocrit 35.7 % (36.0-47.0) Mean Corpuscular Volume 91 fL (79-100) Mean Corpuscular Hemoglobin 30 pg (25-35) Mean Corpuscular Hemoglobin Concent 33 g/dL (31-37) Red Cell Distribution Width 13.8 % (11.5-14.5) Platelet Count 269 x10^3/uL (140-400) Sodium Level 141 mmol/L (136-145) Potassium Level 4.3 mmol/L (3.5-5.1) Chloride Level 104 mmol/L (98-107) Carbon Dioxide Level 26 mmol/L (21-32) Anion Gap 11 (6-14) Blood Urea Nitrogen 17 mg/dL (7-20) Creatinine 0.8 mg/dL (0.6-1.0) Estimated GFR (Cockcroft-Gault) 75.0 BUN/Creatinine Ratio 21 (6-20) Glucose Level 94 mg/dL (70-99) Calcium Level 9.0 mg/dL (8.5-10.1) Total Bilirubin 0.7 mg/dL (0.2-1.0) Aspartate Amino Transf (AST/SGOT) 93 U/L (15-37) Alanine Aminotransferase (ALT/SGPT) 78 U/L (14-59) Alkaline Phosphatase 109 U/L (46-116) Total Protein 7.5 g/dL (6.4-8.2) Albumin 2.5 g/dL (3.4-5.0) Albumin/Globulin Ratio 0.5 (1.0-1.7) Objective: Assessment: 1. Gram-positive cocci bacteremia from 06/14/2020 (2/4 bottles), coag neg staph possibly contaminant 2. Leukocytosis. 3. Fever. resolved 4. Encephalopathy. Likely metabolic 5. Respiratory failure, improved, status post extubation.possible aspiraion 6. Schizophrenia. 7. Hypothyroidism. Plan: Plan of Care DC cefepime and Flagyl due to poor IV access Off Vanc, discussed with micro lab no further blood culture results available at this time We will start Augmentin June 19 Follow-up labs and cultures Maintain aspiration precautions Discussed with nursing WILLIAM BYRNE MD Jun 19, 2020 09:13
--- NOTE | 2020-06-19 09:57 | PDOC ---
PROGRESS NOTES Date of Service DATE: 06/19/20 TIME: 09:55 Assessment Toxic encephalopathy, overdose of benzodiazepines suspected, patient is coming around. I see no evidence of stroke or seizure activity Extubated 06/15 Schizophrenia. Still on 1:1 nursing Leukocytosis, fever, hypothyroidism. Plan Decide on disposition, home versus nursing home versus psychiatry unit Holding on additional neurological studies such as electroencephalogram and MRI. Subjective No complaints Objective Vital Signs Date Time Temp Pulse Resp B/P (MAP) Pulse Ox O2 Delivery O2 Flow Rate FiO2 06/19/20 07:00 98.5 110 18 131/90 (104) 94 Room Air 98.5 06/18/20 08:00 2.0 Intake and Output 06/19/20 07:00 Intake Total 980 ml Output Total 1450 ml Balance -470 ml Intake Oral 980 ml Output Urine Total 1450 ml PHYSICAL EXAM Alert, does not know date, location, or circumstances of her admission PERRL. EOMI. CN: no focal findings. Muscle tone: normal. Muscle strength: 4/5 DTR: 2+ Plantar reflex: Flexor Gait: not examined in bed. Sensory exam: no abnormal findings. No cerebellar signs elicited. Review of Relevant I have reviewed the following items latha (where applicable) has been applied. Labs Laboratory Tests Test 06/19/20 05:55 White Blood Count 10.1 x10^3/uL (4.0-11.0) Red Blood Count 3.92 x10^6/uL (3.50-5.40) Hemoglobin 11.8 g/dL (12.0-15.5) Hematocrit 35.7 % (36.0-47.0) Mean Corpuscular Volume 91 fL (79-100) Mean Corpuscular Hemoglobin 30 pg (25-35) Mean Corpuscular Hemoglobin Concent 33 g/dL (31-37) Red Cell Distribution Width 13.8 % (11.5-14.5) Platelet Count 269 x10^3/uL (140-400) Sodium Level 141 mmol/L (136-145) Potassium Level 4.3 mmol/L (3.5-5.1) Chloride Level 104 mmol/L (98-107) Carbon Dioxide Level 26 mmol/L (21-32) Anion Gap 11 (6-14) Blood Urea Nitrogen 17 mg/dL (7-20) Creatinine 0.8 mg/dL (0.6-1.0) Estimated GFR (Cockcroft-Gault) 75.0 BUN/Creatinine Ratio 21 (6-20) Glucose Level 94 mg/dL (70-99) Calcium Level 9.0 mg/dL (8.5-10.1) Total Bilirubin 0.7 mg/dL (0.2-1.0) Aspartate Amino Transf (AST/SGOT) 93 U/L (15-37) Alanine Aminotransferase (ALT/SGPT) 78 U/L (14-59) Alkaline Phosphatase 109 U/L (46-116) Total Protein 7.5 g/dL (6.4-8.2) Albumin 2.5 g/dL (3.4-5.0) Albumin/Globulin Ratio 0.5 (1.0-1.7) Laboratory Tests Test 06/19/20 05:55 White Blood Count 10.1 x10^3/uL (4.0-11.0) Red Blood Count 3.92 x10^6/uL (3.50-5.40) Hemoglobin 11.8 g/dL (12.0-15.5) Hematocrit 35.7 % (36.0-47.0) Mean Corpuscular Volume 91 fL (79-100) Mean Corpuscular Hemoglobin 30 pg (25-35) Mean Corpuscular Hemoglobin Concent 33 g/dL (31-37) Red Cell Distribution Width 13.8 % (11.5-14.5) Platelet Count 269 x10^3/uL (140-400) Sodium Level 141 mmol/L (136-145) Potassium Level 4.3 mmol/L (3.5-5.1) Chloride Level 104 mmol/L (98-107) Carbon Dioxide Level 26 mmol/L (21-32) Anion Gap 11 (6-14) Blood Urea Nitrogen 17 mg/dL (7-20) Creatinine 0.8 mg/dL (0.6-1.0) Estimated GFR (Cockcroft-Gault) 75.0 BUN/Creatinine Ratio 21 (6-20) Glucose Level 94 mg/dL (70-99) Calcium Level 9.0 mg/dL (8.5-10.1) Total Bilirubin 0.7 mg/dL (0.2-1.0) Aspartate Amino Transf (AST/SGOT) 93 U/L (15-37) Alanine Aminotransferase (ALT/SGPT) 78 U/L (14-59) Alkaline Phosphatase 109 U/L (46-116) Total Protein 7.5 g/dL (6.4-8.2) Albumin 2.5 g/dL (3.4-5.0) Albumin/Globulin Ratio 0.5 (1.0-1.7) Medications Current Medications Sodium Chloride 1,000 ml @ 100 mls/hr Q10H IV Last administered on 06/15/20at 08:52; Start 06/15/20 at 03:15; Stop 06/15/20 at 19:06; Status DC Propofol 100 ml @ 2.508 mls/ hr CONT PRN IV PER PROTOCOL Last administered on 06/15/20at 07:26; Start 06/15/20 at 03:30; Stop 06/16/20 at 08:14; Status DC Aspirin (Aspirin Chewable) 81 mg 1X ONCE PO ; Start 06/15/20 at 11:30; Stop 06/15/20 at 11:31; Status DC Aspirin (Aspirin Chewable) 81 mg [id number] PO Last administered on 06/19/20at 08:10; Start 06/16/20 at 08:00 Lorazepam (Ativan Inj) 1 mg PRN Q4HRS PRN IVP ANXIETY / AGITATION Last administered on 06/16/20at 07:49; Start 06/15/20 at 20:30; Stop 06/16/20 at 08:14; Status DC Olanzapine (ZyPREXA IM) 2.5 mg PRN Q4HRS PRN IM AGITATION Last administered on 06/16/20at 17:51; Start 06/16/20 at 08:00 Amino Acids/ Glycerin/ Electrolytes 1,000 ml @ 80 mls/hr [id number] IV Last administered on 06/19/20at 02:03; Start 06/16/20 at 09:00 Haloperidol Lactate (Haldol Inj) 5 mg PRN Q4HRS PRN IVP AGITATION Last administered on 06/18/20at 01:33; Start 06/16/20 at 15:15 Vancomycin HCl (Vanco Per Pharmacy) 1 each PRN DAILY PRN MC SEE COMMENTS Last administered on 06/17/20at 14:38; Start 06/17/20 at 11:00; Stop 06/18/20 at 11:47; Status DC Vancomycin HCl 2 gm/Sodium Chloride 500 ml @ 250 mls/hr 1X ONCE IV Last administered on 06/17/20at 13:10; Start 06/17/20 at 12:00; Stop 06/17/20 at 13:59; Status DC Vancomycin HCl 1.25 gm/Sodium Chloride 250 ml @ 167 mls/hr Q12H IV Last administered on 06/18/20at 01:38; Start 06/18/20 at 01:00; Stop 06/18/20 at 11:47; Status DC Vancomycin HCl (Vancomycin Trough Level) 1 each 1X ONCE MC ; Start 06/19/20 at 00:30; Stop 06/18/20 at 11:47; Status DC Cefepime HCl (Maxipime) 1 gm Q8HRS IVP Last administered on 06/19/20at 06:02; Start 06/17/20 at 22:00; Stop 06/19/20 at 09:54; Status DC Metronidazole (Flagyl) 500 mg Q8HRS PO Last administered on 06/19/20at 06:02; Start 06/17/20 at 22:00; Stop 06/19/20 at 09:54; Status DC Docusate Sodium (Colace) 100 mg BID PO Last administered on 06/19/20at 08:10; Start 06/19/20 at 09:00 Polyethylene Glycol (miraLAX PACKET) 17 gm DAILY PO ; Start 06/19/20 at 09:00 Vitals/I & O Vital Sign - Last 24 Hours 06/18/20 06/18/20 06/18/20 06/18/20 10:28 14:21 19:14 20:20 Temp 97.8 99.0 98.6 97.8 99.0 98.6 Pulse 113 117 118 Resp 18 18 20 B/P (MAP) 147/97 (114) 148/77 (100) 130/80 (97) Pulse Ox 94 O2 Delivery Room Air Room Air 06/18/20 06/19/20 06/19/20 23:00 03:00 07:00 Temp 98.1 98.7 98.5 98.1 98.7 98.5 Pulse 118 115 110 Resp 20 20 18 B/P (MAP) 151/67 (95) 145/75 (98) 131/90 (104) Pulse Ox 95 93 94 O2 Delivery Room Air Room Air Room Air Intake and Output 06/18/20 06/18/20 06/19/20 15:00 23:00 07:00 Intake Total 680 ml 300 ml Output Total 950 ml 500 ml Balance -270 ml -200 ml Justicifation of Admission Dx: Justifications for Admission: Justification of Admission Dx: N/A AVERY BURGOS MD Jun 19, 2020 09:57
[2020-06-19 11:00] VITALS: BP 155/96
[2020-06-19] MEDS: AMOXICILLIN/K CLAV 875/125MG TABLET. PO SCH ×2 (12:52→21:46)
--- NOTE | 2020-06-19 13:05 | PDOC ---
CARDIO Progress Notes Date and Time Date of Service 06/19/2020 Time of Evaluation 1300 Subjective Subjective: No Chest Pain, No shortness of breath, No Palpitations, Other (feels agitated today) Vitals Vitals Vital Signs Date Time Temp Pulse Resp B/P (MAP) Pulse Ox O2 Delivery O2 Flow Rate FiO2 06/19/20 11:00 98.2 114 18 155/96 (115) 95 Room Air 98.2 06/18/20 08:00 2.0 Weight Weight [ ] Input and Output Intake and Output Intake and Output 06/19/20 07:00 Intake Total 980 ml Output Total 1450 ml Balance -470 ml Intake Oral 980 ml Output Urine Total 1450 ml Laboratory Labs Laboratory Tests Test 06/19/20 05:55 White Blood Count 10.1 x10^3/uL (4.0-11.0) Red Blood Count 3.92 x10^6/uL (3.50-5.40) Hemoglobin 11.8 g/dL (12.0-15.5) Hematocrit 35.7 % (36.0-47.0) Mean Corpuscular Volume 91 fL (79-100) Mean Corpuscular Hemoglobin 30 pg (25-35) Mean Corpuscular Hemoglobin Concent 33 g/dL (31-37) Red Cell Distribution Width 13.8 % (11.5-14.5) Platelet Count 269 x10^3/uL (140-400) Sodium Level 141 mmol/L (136-145) Potassium Level 4.3 mmol/L (3.5-5.1) Chloride Level 104 mmol/L (98-107) Carbon Dioxide Level 26 mmol/L (21-32) Anion Gap 11 (6-14) Blood Urea Nitrogen 17 mg/dL (7-20) Creatinine 0.8 mg/dL (0.6-1.0) Estimated GFR (Cockcroft-Gault) 75.0 BUN/Creatinine Ratio 21 (6-20) Glucose Level 94 mg/dL (70-99) Calcium Level 9.0 mg/dL (8.5-10.1) Total Bilirubin 0.7 mg/dL (0.2-1.0) Aspartate Amino Transf (AST/SGOT) 93 U/L (15-37) Alanine Aminotransferase (ALT/SGPT) 78 U/L (14-59) Alkaline Phosphatase 109 U/L (46-116) Total Protein 7.5 g/dL (6.4-8.2) Albumin 2.5 g/dL (3.4-5.0) Albumin/Globulin Ratio 0.5 (1.0-1.7) Physical Exam HEENT: Neck Supple W Full Motion Chest: Symmetric LUNGS: Other (diminished) Heart: RRR (tachycardia at 120 per palpation) Abdomen: Soft N/T Extremities: No Edema, No Calf Tenderness Neurology: alert, oriented, follow commands Assessment Assessment 1. Acute respiratory failure: possibly med related. extubated, doing well 2. Toxic encephalopathy: UDS+ benzo. suspected OD 3. Mild troponin elevation: peaked at 0.2 Suspect demand mediated type 2 due to respiratory failure. EKG NSR. No known CV hx. No arrhythmias so far. SR 4. Hx of schizophrenia/anxiety/depression/SI 5. Fever: resolved. antibiotics per ID. negative for covid-19 6. HTN: controlled 7. Obesity 8. Mild transaminitis with hx of hep C 9. Tachycardia: likely reactive. No tele on 4N 10. Subclinical hypothyroidism Recommendations 1. Continue pulmonary optimization 2. TTE today. EKG 3. TSH, FLP., Neurology following 4. ASA 5. Supportive care, remains on 1:1 Justicifation of Admission Dx: Justifications for Admission: Justification of Admission Dx: N/A WELLINGTON ORNELAS APRN Jun 19, 2020 13:05
--- NOTE | 2020-06-19 14:34 | CARD ---
MR#: [id number] Date of Study: 06/19/2020 Ordering Physician: WELLINGTON ORNELAS, Referring Physician: WELLINGTON ORNELAS Tech: Carine Triana RUST APPROVED REPORT EXAM: Two-dimensional and M-mode echocardiogram with Doppler and color Doppler. Other Information Quality : Technically LimitedHR: 112bpm Rhythm : NSR INDICATION Chest Pain Tricuspid Valve TR P. [id number] Peak Gr.27mmHg LEFT VENTRICLE The left ventricle is normal size. The left ventricular systolic function is normal. The ejection fra ction is estimated at 55%> There appears to be normal LV segmental wall motion. RIGHT VENTRICLE The right ventricle is normal size. There is normal right ventricular wall thickness. The right ventr icular systolic function is normal. TRICUSPID VALVE The tricuspid valve is normal in structure and function. Doppler and Color Flow revealed mild tricusp id regurgitation. Estimated PAP 30mmHg. PERICARDIAL EFFUSION There is no evidence of significant pericardial effusion. Critical Notification Critical Value: No <Conclusion> Limited echo to assess LV function. The left ventricular systolic function is normal. The ejection fraction is estimated at 55%> There appears to be normal LV segmental wall motion. There is no evidence of significant pericardial effusion. Signed by : Noe Molina, Electronically Approved : 06/19/2020 14:34:14
--- NOTE | 2020-06-19 14:46 | NUR ---
SW following. Discussed with RN, pt on 1:1, room air, soft mechanical diet. PT/OT recommending SNF. Pt very confused at this time, staff not able to determine contact information for pt's son or any family. SW requested a COVID swab in case of placement at a halfway or psych placement. SW will continue to follow.
[2020-06-19 15:00] VITALS: BP 140/86
--- NOTE | 2020-06-19 15:36 | EKG ---
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
[2020-06-19 19:00] VITALS: BP 127/84
[2020-06-19] MEDS: LACTOBACILLUS RHAMNOSUS GG 1 CAPSULE. PO SCH (21:46)
[2020-06-19 23:00] VITALS: BP 130/78
--- NOTE | 2020-06-19 23:13 | PN ---
DATE: 06/19/2020 SUBJECTIVE: The patient is actually more awake, alert today. She did very well in her ____ swallowing evaluation. She is now on a regular thin liquid diet. Her antibiotics were switched to be given orally. However, she continued to be extremely paranoid. We might have got the telephone number for her son. She was evaluated by the physical therapist and she is extremely unsteady on her feet. PHYSICAL EXAMINATION: GENERAL: When I examined her, she looked well and was clearly in no apparent respiratory distress. No pallor, jaundice, cyanosis or thyromegaly. No jugular distention or limb edema. VITAL SIGNS: Her heart rate was 110, blood pressure is 131/90, temperature was 98.5, respiratory rate was 18 and oxygen saturation was 94% on room air. HEAD, EYES, EARS, NOSE AND THROAT: Normocephalic, atraumatic. NECK: Supple. HEART: Showed normal first and second heart sounds. No gallop, rub or murmur. CHEST: Clear to auscultation. No crepitation or rhonchi. ABDOMEN: Distended, soft, nontender. NEUROLOGICAL: She is awake, alert, extremely paranoid, suspicious, but all her cranial nerves are intact. She moves extremities without difficulty, although she apparently has been very unsteady on her feet. LABORATORY DATA: Her lab work as of this morning showed a white cell count of 10,000, hemoglobin 12, hematocrit 36, MCV 91 and platelet count 269,000. Her chemistry showed a serum sodium of 141, potassium 4.3, chloride 104, bicarbonate 26, anion gap of 11, BUN 17, creatinine 0.8. Estimated GFR was 75 mL per minute. Her glucose was 94. Calcium was 9. Total bilirubin and alkaline phosphatase are normal. AST is still slightly elevated. Total protein 7.5. Albumin was 2.5. ASSESSMENT AND PLAN: 1. Altered mental status, likely due to benzodiazepine overdose. The patient is actually more awake, alert now, although is very paranoid. 2. Acute hypoxic respiratory failure, requiring intubation and mechanical ventilation. The patient, however, was successfully extubated. 3. Schizophrenia. 4. History of hepatitis C; however, the liver enzymes, ammonia and prothrombin time are all within normal range. 5. The patient is known to have history of suicidal and homicidal ideation and apparently was admitted to [place] on 04/13/2020. 6. She is known to be noncompliant with her medications. 7. She has grown gram-positive cocci in 2 bottles out of 4, identified as coagulase-negative Staphylococcus for which she was switched to Augmentin. We will attempt to contact her son to find out exactly her medications; continue with physical and occupational therapy; and once she is stable and the psych assessment team feels that she is safe to go home, we will discharge her. BALTAZAR DR: Evgeny TID: [id number]
[2020-06-20] MEDS: AMINO AC 3%/ELECTROLYTE/GLYCER 1,000 ML IV SCH ×2 (00:30→12:36)
[2020-06-20 03:00] VITALS: BP 111/59
[2020-06-20 07:01] VITALS: BP 142/81
--- NOTE | 2020-06-20 08:45 | PDOC ---
Infectious Disease Note Subjective: Subjective Patient is more alert today Gets agitated Discussed with RN Has been refusing her meds Complains of left flank pain Denies fever, nausea, vomiting, diarrhea, abdominal pain, symptoms Vital Signs: Vital Signs Vital Signs Date Time Temp Pulse Resp B/P (MAP) Pulse Ox O2 Delivery O2 Flow Rate FiO2 06/20/20 07:01 98.3 86 18 142/81 (101) 95 Room Air 98.3 Physical Exam: PHYSICAL EXAM GENERAL: Alert awake, HEENT: Pupils equally round, reactive. Normal conjunctivae. Oropharynx is very dry NECK: Supple. LUNGS: Clear to auscultation. No accessory muscle use. HEART: S1 and S2, regular. ABDOMEN: Obese, soft, mild tenderness in the left flank, bowel sounds present EXTREMITIES: No gross edema or cyanosis. Peripheral IV looks okay. Mild thrombophlebitis left upper extremity with previous PIV SKIN: Warm to touch. No signs of rash. NEUROLOGIC: Alert awake moves all 4 extremities Medications: Inpatient Meds: Medications reviewed. Objective: Assessment: 1. Gram-positive cocci bacteremia from 06/14/2020 (2/4 bottles), coag neg staph possibly contaminant 2. Leukocytosis. 3. Fever. resolved 4. Encephalopathy. Likely metabolic 5. Respiratory failure, improved, status post extubation.possible aspiraion 6. Schizophrenia. 7. Hypothyroidism. Plan: Plan of Care Cont Augmentin June 19 Warm compresses or cold packs to left upper extremity Left flank pain appears to be musculoskeletal in nature Monitor closely Follow-up labs and cultures Maintain aspiration precautions Discussed with nursing WILLIAM BYRNE MD Jun 20, 2020 08:45
[2020-06-20] MEDS: POLYETHYLENE GLYCOL 3350 17 GM PACKET. PO SCH (09:00)
--- NOTE | 2020-06-20 10:46 | PDOC ---
PROGRESS NOTES Date of Service DATE: 06/20/20 TIME: 10:45 Assessment Toxic encephalopathy, overdose of benzodiazepines suspected, patient is coming around. I see no evidence of stroke or seizure activity Extubated 06/15 Schizophrenia. Still on 1:1 nursing Leukocytosis, fever, hypothyroidism. Plan Decide on disposition, home versus half-way versus psychiatry unit Holding on additional neurological studies such as electroencephalogram and MRI. Subjective No complaints Objective Vital Signs Date Time Temp Pulse Resp B/P (MAP) Pulse Ox O2 Delivery O2 Flow Rate FiO2 06/20/20 07:01 98.3 86 18 142/81 (101) 95 Room Air 98.3 Intake and Output 06/20/20 07:00 Intake Total 300 ml Output Total 1580 ml Balance -1280 ml Intake Oral 300 ml Output Urine Total 1580 ml # Voids 5 # Bowel Movements 1 PHYSICAL EXAM Alert, does not know date, location, or circumstances of her admission. Was hallucinating earlier according to 1:1 nurse PERRL. EOMI. CN: no focal findings. Muscle tone: normal. Muscle strength: 4/5 DTR: 2+ Plantar reflex: Flexor Gait: not examined in bed. Sensory exam: no abnormal findings. No cerebellar signs elicited. Review of Relevant I have reviewed the following items latha (where applicable) has been applied. Labs Laboratory Tests Test 06/19/20 05:55 White Blood Count 10.1 x10^3/uL (4.0-11.0) Red Blood Count 3.92 x10^6/uL (3.50-5.40) Hemoglobin 11.8 g/dL (12.0-15.5) Hematocrit 35.7 % (36.0-47.0) Mean Corpuscular Volume 91 fL (79-100) Mean Corpuscular Hemoglobin 30 pg (25-35) Mean Corpuscular Hemoglobin Concent 33 g/dL (31-37) Red Cell Distribution Width 13.8 % (11.5-14.5) Platelet Count 269 x10^3/uL (140-400) Sodium Level 141 mmol/L (136-145) Potassium Level 4.3 mmol/L (3.5-5.1) Chloride Level 104 mmol/L (98-107) Carbon Dioxide Level 26 mmol/L (21-32) Anion Gap 11 (6-14) Blood Urea Nitrogen 17 mg/dL (7-20) Creatinine 0.8 mg/dL (0.6-1.0) Estimated GFR (Cockcroft-Gault) 75.0 BUN/Creatinine Ratio 21 (6-20) Glucose Level 94 mg/dL (70-99) Calcium Level 9.0 mg/dL (8.5-10.1) Total Bilirubin 0.7 mg/dL (0.2-1.0) Aspartate Amino Transf (AST/SGOT) 93 U/L (15-37) Alanine Aminotransferase (ALT/SGPT) 78 U/L (14-59) Alkaline Phosphatase 109 U/L (46-116) Total Protein 7.5 g/dL (6.4-8.2) Albumin 2.5 g/dL (3.4-5.0) Albumin/Globulin Ratio 0.5 (1.0-1.7) Medications Current Medications Sodium Chloride 1,000 ml @ 100 mls/hr Q10H IV Last administered on 06/15/20at 08:52; Start 06/15/20 at 03:15; Stop 06/15/20 at 19:06; Status DC Propofol 100 ml @ 2.508 mls/ hr CONT PRN IV PER PROTOCOL Last administered on 06/15/20at 07:26; Start 06/15/20 at 03:30; Stop 06/16/20 at 08:14; Status DC Aspirin (Aspirin Chewable) 81 mg 1X ONCE PO ; Start 06/15/20 at 11:30; Stop 06/15/20 at 11:31; Status DC Aspirin (Aspirin Chewable) 81 mg [id number] PO Last administered on 06/19/20at 08:10; Start 06/16/20 at 08:00 Lorazepam (Ativan Inj) 1 mg PRN Q4HRS PRN IVP ANXIETY / AGITATION Last administered on 06/16/20at 07:49; Start 06/15/20 at 20:30; Stop 06/16/20 at 08:14; Status DC Olanzapine (ZyPREXA IM) 2.5 mg PRN Q4HRS PRN IM AGITATION Last administered on 06/16/20at 17:51; Start 06/16/20 at 08:00 Amino Acids/ Glycerin/ Electrolytes 1,000 ml @ 80 mls/hr [id number] IV Last administered on 06/19/20at 02:03; Start 06/16/20 at 09:00 Haloperidol Lactate (Haldol Inj) 5 mg PRN Q4HRS PRN IVP AGITATION Last administered on 06/18/20at 01:33; Start 06/16/20 at 15:15 Vancomycin HCl (Vanco Per Pharmacy) 1 each PRN DAILY PRN MC SEE COMMENTS Last administered on 06/17/20at 14:38; Start 06/17/20 at 11:00; Stop 06/18/20 at 11:47; Status DC Vancomycin HCl 2 gm/Sodium Chloride 500 ml @ 250 mls/hr 1X ONCE IV Last administered on 06/17/20at 13:10; Start 06/17/20 at 12:00; Stop 06/17/20 at 13:59; Status DC Vancomycin HCl 1.25 gm/Sodium Chloride 250 ml @ 167 mls/hr Q12H IV Last administered on 06/18/20at 01:38; Start 06/18/20 at 01:00; Stop 06/18/20 at 11:47; Status DC Vancomycin HCl (Vancomycin Trough Level) 1 each 1X ONCE MC ; Start 06/19/20 at 00:30; Stop 06/18/20 at 11:47; Status DC Cefepime HCl (Maxipime) 1 gm Q8HRS IVP Last administered on 06/19/20at 06:02; Start 06/17/20 at 22:00; Stop 06/19/20 at 09:54; Status DC Metronidazole (Flagyl) 500 mg Q8HRS PO Last administered on 06/19/20 06:02; Start 06/17/20 at 22:00; Stop 06/19/20 at 09:54; Status DC Docusate Sodium (Colace) 100 mg BID PO Last administered on 06/19/20at 08:10; Start 06/19/20 at 09:00 Polyethylene Glycol (miraLAX PACKET) 17 gm DAILY PO ; Start 06/19/20 at 09:00 Amoxicillin/ Clavulanate Potassium (Augmentin 875/ 125mg) 1 tab BID PO Last administered on 06/19/20at 21:46; Start 06/19/20 at 12:00 Lactobacillus Rhamnosus (Culturelle) 1 cap BID PO Last administered on 06/19/20at 21:46; Start 06/19/20 at 21:00 Vitals/I & O Vital Sign - Last 24 Hours 06/19/20 06/19/20 06/19/20 06/19/20 11:00 15:00 19:00 20:00 Temp 98.2 98.2 98.5 98.2 98.2 98.5 Pulse 114 110 113 Resp 18 18 20 B/P (MAP) 155/96 (115) 140/86 (104) 127/84 (98) Pulse Ox 95 92 91 O2 Delivery Room Air Room Air Room Air Room Air 06/19/20 06/20/20 06/20/20 23:00 03:00 07:01 Temp 98.6 98.3 98.3 98.6 98.3 98.3 Pulse 112 97 86 Resp 20 20 18 B/P (MAP) 130/78 (95) 111/59 (76) 142/81 (101) Pulse Ox 94 92 95 O2 Delivery Room Air Room Air Room Air Intake and Output 06/19/20 06/19/20 06/20/20 15:00 23:00 07:00 Intake Total 300 ml Output Total 980 ml 600 ml Balance -980 ml -300 ml Justicifation of Admission Dx: Justifications for Admission: Justification of Admission Dx: N/A AVERY BURGOS MD Jun 20, 2020 10:46
[2020-06-20 10:54] VITALS: BP 140/88
--- NOTE | 2020-06-20 11:08 | NUR ---
SW following. Discussed with RN. Mujica ([facility]) coming to see pt today, as pt was not appropriate to be seen prior. SW awaiting confirmation from [facility] RE recommendations. SW will continue to follow. Addendum: 06/20/20 at 1323 by TATIANA HIDALGO SW Pt cleared by [facility]) to discharge home. Pt is open with the [facility] and will follow up for a med appointment. RN notified. SW met with pt to discuss home health, pt declining at this time. SW notified pt she can go to her PCP if she changes her mind and have them order home health for her. Pt denied any further SW needs.
--- NOTE | 2020-06-20 13:14 | PDOC ---
CARDIO Progress Notes Date and Time Date of Service 06/20/2020 Time of Evaluation 1300 Subjective Subjective: No Chest Pain, No shortness of breath, No Palpitations Vitals Vitals Vital Signs Date Time Temp Pulse Resp B/P (MAP) Pulse Ox O2 Delivery O2 Flow Rate FiO2 06/20/20 11:22 Room Air 06/20/20 10:54 97.8 91 18 140/88 (105) 94 97.8 Weight Weight [ ] Input and Output Intake and Output Intake and Output 06/20/20 07:00 Intake Total 300 ml Output Total 1580 ml Balance -1280 ml Intake Oral 300 ml Output Urine Total 1580 ml # Voids 5 # Bowel Movements 1 Physical Exam HEENT: Neck Supple W Full Motion Chest: Symmetric LUNGS: Other (diminished) Heart: RRR (tachycardia at 120 per palpation) Abdomen: Soft N/T Extremities: No Edema, No Calf Tenderness Neurology: alert, oriented, follow commands Assessment Assessment 1. Acute respiratory failure: possibly med related. extubated, doing well 2. Toxic encephalopathy: UDS+ benzo. suspected OD 3. Mild troponin elevation: peaked at 0.2, demand mediated type 2 due to respiratory failure. EKG NSR. No known CV hx. No arrhythmias so far. EF and WM nml 4. Hx of schizophrenia/anxiety/depression/SI 5. Fever: resolved. antibiotics per ID. negative for covid-19 6. HTN: controlled 7. Obesity 8. Mild transaminitis with hx of hep C 9. Reactive sinus tachycardia: better 10. Subclinical hypothyroidism Recommendations 1. Continue pulmonary optimization 2. ASA 3. Remains on 1:1. Nothing further cardiac swann. If BP med is needed then would recommend cardizem and not BB 4. Consider for outpt stress test if she complies Justicifation of Admission Dx: Justifications for Admission: Justification of Admission Dx: N/A WELLINGTON ORNELAS APRN Jun 20, 2020 13:14
[2020-06-20] MEDS: LACTOBACILLUS RHAMNOSUS GG 1 CAPSULE. PO SCH ×2 (13:31→20:34)
[2020-06-20] MEDS: ASPIRIN CHEWABLE 81 MG TABLET. PO SCH (13:31)
[2020-06-20] MEDS: DOCUSATE SODIUM 100 MG CAPSULE. PO SCH ×2 (13:31→20:35)
[2020-06-20] MEDS: AMOXICILLIN/K CLAV 875/125MG TABLET. PO SCH ×2 (13:31→20:34)
[2020-06-20 15:01] VITALS: BP 125/71
--- NOTE | 2020-06-20 15:18 | RAD ---
CT ABDOMEN+PELVIS WO History: Left flank pain radiating to the left groin. Comparison: None. Technique: CT of the abdomen and pelvis without contrast Findings: Lung bases: Small to moderate left pneumothorax. Dense left lower lobe consolidation. Partial consoli dation left upper lobe adjacent to the fissure. Patchy groundglass opacities in the visualized right upper, right middle and lower lobes. Trace pleural effusions. General abdomen: No ascites. No free air. Liver : Normal in size and attenuation. No masses seen. Gallbladder/Biliary Tree: Normal gallbladder. No intrahepatic or extrahepatic biliary ductal dilatati on. Pancreas: Normal. Spleen: Normal in size and attenuation. Adrenal glands: Normal. Kidneys: No hydronephrosis or hydroureter. No renal masses identified. Gastrointestinal: Unremarkable. Lymph nodes: No lymphadenopathy. Vessels: Unremarkable. Pelvic organs: Unremarkable reproductive organs. No pelvic masses. Small foci of air within the bladd er. Soft tissues: Unremarkable. Bones: No acute or aggressive lesions. Impression: 1. Small to moderate left pneumothorax. 2. Multifocal pneumonia with consolidation in the left lower lobe, left upper lobe and groundglass o pacities in the right lung. 3. No acute findings in the abdomen and pelvis. 4. Small foci of air within the bladder, correlate for recent catheterization. FOR INTERNAL CODING PURPOSES Critical result: Unexpected pneumothorax. Findings discussed with Dr. Baptiste at 06/20/2020 3:12 PM. RESULT CODE: (C) ------ Exposure: One or more of the following individualized dose reduction techniques were utilized for thi s examination: 1. Automated exposure control 2. Adjustment of the mA and/or kV according to patient size 3. Use of iterative reconstruction technique. Electronically signed by: Raymond Lawrence MD (06/20/2020 3:15 PM) [facility]
--- NOTE | 2020-06-20 17:27 | RAD ---
Exam: Chest one view INDICATION: Pneumothorax TECHNIQUE: Frontal view of the chest Comparisons: CT 06/20/2020 FINDINGS: The cardiomediastinal silhouette and pulmonary vessels are within normal limits. There is a small to moderate left apical pneumothorax. Remaining lungs are clear. IMPRESSION: Small to moderate left apical pneumothorax. Electronically signed by: Jonny Walden MD (06/20/2020 5:24 PM) [facility]
[2020-06-20 19:00] VITALS: BP 144/99
[2020-06-20] MEDS: HYDROcodone/APAP 5/325MG 1 TAB TABLET PO PRN (21:55)
[2020-06-20 23:00] VITALS: BP 156/84
--- NOTE | 2020-06-20 23:48 | PN ---
DATE: 06/20/2020 SUBJECTIVE: The patient is sitting comfortably in her chair in no apparent distress. She is definitely more awake, alert and responding appropriately. She is eating and drinking. She has been able to walk with a walker. She will be evaluated by the psych assessment team to decide on disposition. We have not managed to contact any of her family so far. OBJECTIVE: GENERAL: When I examined her, she looked well and was clearly in no apparent respiratory distress. VITAL SIGNS: Her heart rate was 91, blood pressure 140/88, temperature 97.8, respiratory rate was 18 and oxygen saturation was 94%. Her rest of clinical exam is stable. ASSESSMENT: 1. Altered mental status due to benzodiazepine overdose. The patient is actually more awake, alert today, up and about walking with a walker. 2. Acute hypoxic respiratory failure requiring intubation and mechanical ventilation. The patient was successfully extubated. 3: Schizophrenia. 3. History of hepatitis C; however, her liver enzymes, ammonia and prothrombin time are all within normal range. 4. The patient is known to have history of suicidal and homicidal ideation and apparently was admitted to the [facility] on 04/13/2020. 5. She is known to have noncompliant with her medication. 6. She has grown gram-positive cocci in two bottles out of four identified as coagulase-negative Staph for which she was on Augmentin. PLAN: To await for the psych team evaluation and decide on further management accordingly. LENKA DR: Evgeny TID: [id number]
[2020-06-21] MEDS: AMINO AC 3%/ELECTROLYTE/GLYCER 1,000 ML IV SCH ×2 (01:30→12:04)
[2020-06-21 03:00] VITALS: BP 101/58
[2020-06-21] MEDS: HYDROcodone/APAP 5/325MG 1 TAB TABLET PO PRN ×3 (05:09→20:04)
[2020-06-21 07:15] VITALS: BP 119/73
--- NOTE | 2020-06-21 08:40 | PDOC ---
Infectious Disease Note Subjective: Subjective Patient feels better Flank pain is improving though has pain whenever she takes a deep breath Denies fever, nausea, vomiting, cough On room air Discussed with RN No other acute issues Vital Signs: Vital Signs Vital Signs Date Time Temp Pulse Resp B/P (MAP) Pulse Ox O2 Delivery O2 Flow Rate FiO2 06/21/20 07:15 97.4 70 16 119/73 (88) 94 Room Air 97.4 06/21/20 05:39 2.0 Physical Exam: PHYSICAL EXAM GENERAL: Alert awake, on room air in no acute distress, looks better HEENT: Pupils equally round, reactive. Normal conjunctivae. Oropharynx is very dry NECK: Supple. No crepitus LUNGS: Decreased breath sound left upper lung, crepitus HEART: S1 and S2, regular. ABDOMEN: Obese, soft, bowel sounds present EXTREMITIES: No gross edema or cyanosis. Peripheral IV looks okay. Mild thrombophlebitis left upper extremity with previous PIV improving SKIN: Warm to touch. No signs of rash. NEUROLOGIC: Alert awake moves all 4 extremities Medications: Inpatient Meds: Medications reviewed. Objective: Assessment: 1. Gram-positive cocci bacteremia from 06/14/2020 (2/4 bottles), coag neg staph possibly contaminant 2. Leukocytosis. 3. Fever. resolved 4. Encephalopathy. Likely metabolic 5. Respiratory failure, improved, status post extubation.possible aspiraion 6. Schizophrenia. 7. Hypothyroidism. 8. Small left apical pneumothorax Plan: Plan of Care Cont Augmentin June 19, patient does not have any IV access Low threshold to transition to IV Zosyn if patient is febrile Monitor left upper extremity closely improved Monitor respiratory status closely Follow-up labs and cultures Maintain aspiration precautions Discussed with nursing WILLIAM BYRNE MD Jun 21, 2020 08:40
--- NOTE | 2020-06-21 08:57 | RAD ---
EXAM: Chest, single view. HISTORY: Pneumothorax. COMPARISON: 06/20/2020 FINDINGS: A frontal view of the chest obtained. There has been minimal interval decrease in a small t o moderate left pneumothorax. There is stable left lower lobe atelectasis or interstitial infiltrate. There is stable suspected linear atelectasis or scarring within the right lower lobe. There is stabl e focal right apical opacity. The heart is normal in size. IMPRESSION: 1. Slight interval decrease in a small to moderate left pneumothorax. 2. Stable left lower lobe atelectasis or infiltrate and suspected right lower lobe atelectasis or sca rring. 3. Stable focal opacity overlying the right lung apex, possibly due to overlying osseous shadows or a nodule. Short-term radiographic or CT follow-up is recommended. Electronically signed by: Mellissa Mendez MD (06/21/2020 8:55 AM) [id number]
[2020-06-21] MEDS: DOCUSATE SODIUM 100 MG CAPSULE. PO SCH ×2 (09:10→20:04)
[2020-06-21] MEDS: LACTOBACILLUS RHAMNOSUS GG 1 CAPSULE. PO SCH ×2 (09:10→20:03)
[2020-06-21] MEDS: AMOXICILLIN/K CLAV 875/125MG TABLET. PO SCH ×2 (09:10→20:03)
[2020-06-21] MEDS: ASPIRIN CHEWABLE 81 MG TABLET. PO SCH (09:10)
[2020-06-21] MEDS: POLYETHYLENE GLYCOL 3350 17 GM PACKET. PO SCH (09:15)
[2020-06-21 11:01] VITALS: BP 142/91
--- NOTE | 2020-06-21 12:01 | PDOC ---
PULMONARY PROGRESS NOTES DATE: 06/21/20 TIME: 11:58 Subjective ext 06/15, on RA awake and alert some hypoxia/SOA yesterday with new CXR finding of left apical PTX Vitals Vital Signs Date Time Temp Pulse Resp B/P (MAP) Pulse Ox O2 Delivery O2 Flow Rate FiO2 06/21/20 11:01 98.0 97 18 142/91 (108) 98 Room Air 98.0 06/21/20 05:39 2.0 ROS: No Nausea, No Chest Pain, No Abdominal Pain, No Increase Cough General: Alert, Oriented X4 HEENT: Other Lungs: Crackles Cardiovascular: S1, S2 Abdomen: Soft, Non-tender Neuro Exam: Alert, Oriented Extremities: No Edema Skin: Warm Medications Active Scripts Medications Dose Route/Sig Max Daily Dose Days Date Category Comments CXR 06/21 IMPRESSION: 1. Slight interval decrease in a small to moderate left pneumothorax. 2. Stable left lower lobe atelectasis or infiltrate and suspected right lower lobe atelectasis or scarring. 3. Stable focal opacity overlying the right lung apex, possibly due to overlying osseous shadows or a nodule. Short-term radiographic or CT follow-up is recommended. Impression . IMPRESSION: 1. Acute respiratory failure secondary to benzodiazepine overdose--resolved now on room air 2. Toxic encephalopathy--improved 3. History of depression and schizophrenia. 4. Hemodynamically stable. 5. Mild elevation in troponin. 6. Left apical PTX ( small and stable ) , and LLL density most likely Atelectasis, no fever, normal wbc, less likely pneumonia Plan . stable from respiratory stand point, remains on room air CXR reviewed, small left apical PTX, no need for intervention at this time, monitor closely , f/u cxr in am IS at bedside -- LLL Atelectasis ABX per ID --She has grown gram-positive cocci in two bottles out of four identified as coagulase-negative Staph for which she was on Augmentin. Await Psych recs follow Cardiology recs fall aspiration precaution Follow Neurology input covid19 neg Repeat CXR in am PT/OT D/W JORGE L GRAHAM MD Jun 21, 2020 12:01
[2020-06-21 15:17] VITALS: BP 139/86
[2020-06-21 19:00] VITALS: BP 131/92
--- NOTE | 2020-06-21 21:24 | PN ---
DATE: 06/21/2020 SUBJECTIVE: The patient was about to be discharged home yesterday when she started complaining of pain in the left flank area, stating that radiates down to the left groin and therefore, I did actually a CT scan of the abdomen and pelvis, thinking that she has renal calculus as the pain is consistent with renal colic and I received a call from the radiologist, stating the patient has [id number] left-sided pneumothorax. She has also multifocal pneumonia with consolidation in the left lower lobe, the left upper lobe and ground glass opacities in the right lung with no acute finding in the abdomen and pelvis and small foci of air within the bladder, indicating recent catheterization. The patient was kept overnight. She has had an x-ray done, which showed the patient has [id number] left apical pneumothorax yesterday and a repeat x-ray this morning showed that the slight interval decrease in [id number] left pneumothorax. Does have also stable left lower atelectasis and infiltrate and suspected right lower lobe atelectasis or scarring. On questioning her, she continued to have some pain in the left side. Denied any cough, phlegm or hemoptysis. Denied any chills, rigors or fever. PHYSICAL EXAMINATION: GENERAL: When I examined her, she looked well and was clearly in no apparent respiratory distress. No pallor, jaundice, cyanosis or thyromegaly. No jugular venous distention, no lower limb edema. VITAL SIGNS: Her heart rate was 70, blood pressure 119/73, temperature was 97.4, respiratory rate 16 and oxygen saturation was 94% on room air. HEAD, EYES, EARS, NOSE AND THROAT: Normocephalic, atraumatic. NECK: Supple. HEART: Showed normal first and second heart sounds, no gallop, rub or murmur. CHEST: Clear to auscultation, no crepitation or rhonchi. ABDOMEN: Distended, soft and nontender. NEUROLOGIC: She was grossly intact. LABORATORY DATA: Her most recent white cell count was 10,000, hemoglobin 12, hematocrit 36, MCV 91 and platelet count 269,000. Her serum sodium was 141, potassium 4.3, chloride 104, bicarbonate 26, anion gap 11, BUN 17 and creatinine 0.8. Estimated GFR was 75 mL per minute. Her glucose 94 and calcium was 9. Total bilirubin and alkaline phosphatase are normal. AST and ALT slightly elevated. Total protein 7.5. Albumin was 2.5. This morning, x-ray showed a slight interval decrease in [id number] left-sided pneumothorax. Stable left lower lobe atelectasis and infiltrate and suspected right lower lobe atelectasis or scarring and stable focal opacity overlying the right lung apex, possibly due to overlying osseous shadows or nodules. PLAN: To continue with pain medication. Continue with antibiotic. If we do consult the pen maker and if he thinks she can be discharged home later, we will discharge her. LENKA DR: Evgeny TID: [id number]
[2020-06-21 23:00] VITALS: BP 121/71
[2020-06-22 03:00] VITALS: BP 144/82
[2020-06-22 07:00] VITALS: BP 126/63
--- NOTE | 2020-06-22 08:47 | RAD ---
EXAM: Chest, single view. HISTORY: Pneumothorax. COMPARISON: 06/21/2020 FINDINGS: A frontal view of the chest is obtained. There has been no change in a small to moderate le ft pneumothorax. There is stable bilateral lower lobe atelectasis, scarring or infiltrate superimpose d on diffuse interstitial prominence. No pleural effusion is seen. The heart is stable in size. There is stable nodular opacity at the right lung apex. IMPRESSION: 1. Stable small to moderate left pneumothorax. 2. Stable bilateral lower lobe atelectasis, infiltrate or scarring superimposed on chronic appearing interstitial changes. 3. Stable nodular opacity at the right lung apex. This appears to be separate from overlying osseous shadows. This can be better assessed with a nonemergent CT. Electronically signed by: Mellissa Mendez MD (06/22/2020 8:44 AM) [id number]
[2020-06-22] MEDS: DOCUSATE SODIUM 100 MG CAPSULE. PO SCH (09:00)
[2020-06-22] MEDS: LACTOBACILLUS RHAMNOSUS GG 1 CAPSULE. PO SCH (09:07)
[2020-06-22] MEDS: ASPIRIN CHEWABLE 81 MG TABLET. PO SCH (09:07)
[2020-06-22] MEDS: AMOXICILLIN/K CLAV 875/125MG TABLET. PO SCH (09:07)
[2020-06-22] MEDS: POLYETHYLENE GLYCOL 3350 17 GM PACKET. PO SCH (09:07)
--- NOTE | 2020-06-22 09:20 | PDOC ---
Infectious Disease Note Subjective: Subjective Patient feels better Flank pain is improving Denies fever, nausea, vomiting, cough On room air Discussed with RN No other acute issues Ready for discharge per team later today Vital Signs: Vital Signs Vital Signs Date Time Temp Pulse Resp B/P (MAP) Pulse Ox O2 Delivery O2 Flow Rate FiO2 06/22/20 07:00 98.2 103 18 126/63 (84) 93 Room Air 98.2 Physical Exam: PHYSICAL EXAM GENERAL: Alert awake, on room air in no acute distress, looks better HEENT: Pupils equally round, reactive. Normal conjunctivae. Oropharynx is very dry NECK: Supple. No crepitus LUNGS: Decreased breath sound left upper lung, crepitus HEART: S1 and S2, regular. ABDOMEN: Obese, soft, bowel sounds present EXTREMITIES: No gross edema or cyanosis. Peripheral IV looks okay. Mild thrombophlebitis left upper extremity with previous PIV improving SKIN: Warm to touch. No signs of rash. NEUROLOGIC: Alert awake moves all 4 extremities Medications: Inpatient Meds: Medications reviewed. Objective: Assessment: 1. Gram-positive cocci bacteremia from 06/14/2020 (2/4 bottles), coag neg staph possibly contaminant 2. Leukocytosis. 3. Fever. resolved 4. Encephalopathy. Likely metabolic 5. Respiratory failure, improved, status post extubation.possible aspiraion 6. Schizophrenia. 7. LT pneumothorax on room air Plan: Plan of Care Cont Augmentin while here then DC Okay to discharge from ID standpoint Discussed with nursing WILLIAM BYRNE MD Jun 22, 2020 09:20
[2020-06-22] MEDS: HYDROcodone/APAP 5/325MG 1 TAB TABLET PO PRN (09:22)
[2020-06-22 10:35] VITALS: BP 151/80
--- NOTE | 2020-06-22 10:48 | PDOC ---
PROGRESS NOTES Date of Service DATE: 06/22/20 TIME: 10:46 Assessment Toxic encephalopathy, overdose of benzodiazepines suspected, patient is coming around. I see no evidence of stroke or seizure activity Extubated 06/15 Schizophrenia. Still on 1:1 nursing Leukocytosis, fever, hypothyroidism Plan Psychiatric assessment team has cleared the patient to return home Holding on additional neurological studies such as electroencephalogram and MRI. No need for neurological follow-up Subjective No complaints, wants to go home Objective Vital Signs Date Time Temp Pulse Resp B/P (MAP) Pulse Ox O2 Delivery O2 Flow Rate FiO2 06/22/20 10:35 99.1 98 20 151/80 (103) 95 Room Air 99.1 Intake and Output 06/22/20 07:00 Intake Total 640 ml Balance 640 ml Intake Oral 640 ml # Voids 2 # Bowel Movements 1 PHYSICAL EXAM Alert, knows date and location, does not know circumstances of her admission. Denies hallucinations PERRL. EOMI. CN: no focal findings. Muscle tone: normal. Muscle strength: 4/5 DTR: 2+ Plantar reflex: Flexor Gait: Normal. Sensory exam: no abnormal findings. No cerebellar signs elicited. Review of Relevant I have reviewed the following items latha (where applicable) has been applied. Medications Current Medications Sodium Chloride 1,000 ml @ 100 mls/hr Q10H IV Last administered on 06/15/20at 08:52; Start 06/15/20 at 03:15; Stop 06/15/20 at 19:06; Status DC Propofol 100 ml @ 2.508 mls/ hr CONT PRN IV PER PROTOCOL Last administered on 06/15/20at 07:26; Start 06/15/20 at 03:30; Stop 06/16/20 at 08:14; Status DC Aspirin (Aspirin Chewable) 81 mg 1X ONCE PO ; Start 06/15/20 at 11:30; Stop 06/15/20 at 11:31; Status DC Aspirin (Aspirin Chewable) 81 mg [id number] PO Last administered on 06/22/20at 09:07; Start 06/16/20 at 08:00 Lorazepam (Ativan Inj) 1 mg PRN Q4HRS PRN IVP ANXIETY / AGITATION Last administered on 06/16/20at 07:49; Start 06/15/20 at 20:30; Stop 06/16/20 at 08:14; Status DC Olanzapine (ZyPREXA IM) 2.5 mg PRN Q4HRS PRN IM AGITATION Last administered on 06/16/20at 17:51; Start 06/16/20 at 08:00 Amino Acids/ Glycerin/ Electrolytes 1,000 ml @ 80 mls/hr [id number] IV Last administered on 06/19/20at 02:03; Start 06/16/20 at 09:00; Stop 06/21/20 at 12:05; Status DC Haloperidol Lactate (Haldol Inj) 5 mg PRN Q4HRS PRN IVP AGITATION Last administered on 06/18/20at 01:33; Start 06/16/20 at 15:15 Vancomycin HCl (Vanco Per Pharmacy) 1 each PRN DAILY PRN MC SEE COMMENTS Last administered on 06/17/20at 14:38; Start 06/17/20 at 11:00; Stop 06/18/20 at 11:47; Status DC Vancomycin HCl 2 gm/Sodium Chloride 500 ml @ 250 mls/hr 1X ONCE IV Last administered on 06/17/20at 13:10; Start 06/17/20 at 12:00; Stop 06/17/20 at 13:59; Status DC Vancomycin HCl 1.25 gm/Sodium Chloride 250 ml @ 167 mls/hr Q12H IV Last administered on 06/18/20at 01:38; Start 06/18/20 at 01:00; Stop 06/18/20 at 11:47; Status DC Vancomycin HCl (Vancomycin Trough Level) 1 each 1X ONCE MC ; Start 06/19/20 at 00:30; Stop 06/18/20 at 11:47; Status DC Cefepime HCl (Maxipime) 1 gm Q8HRS IVP Last administered on 06/19/20at 06:02; Start 06/17/20 at 22:00; Stop 06/19/20 at 09:54; Status DC Metronidazole (Flagyl) 500 mg Q8HRS PO Last administered on 06/19/20at 06:02; Start 06/17/20 at 22:00; Stop 06/19/20 at 09:54; Status DC Docusate Sodium (Colace) 100 mg BID PO Last administered on 06/21/20at 09:10; Start 06/19/20 at 09:00 Polyethylene Glycol (miraLAX PACKET) 17 gm DAILY PO Last administered on 06/22/20 09:07; Start 06/19/20 at 09:00 Amoxicillin/ Clavulanate Potassium (Augmentin 875/ 125mg) 1 tab BID PO Last administered on 06/22/20 09:07; Start 06/19/20 at 12:00 Lactobacillus Rhamnosus (Culturelle) 1 cap BID PO Last administered on 06/22/20 09:07; Start 06/19/20 at 21:00 Acetaminophen/ Hydrocodone Bitart (Lortab 5/325) 1 tab PRN Q6HRS PRN PO PAIN Last administered on 06/22/20 09:22; Start 06/20/20 at 21:30 Active Scripts Active Vitals/I & O Vital Sign - Last 24 Hours 06/21/20 06/21/20 06/21/20 06/21/20 11:01 12:22 15:17 19:00 Temp 98.0 98.3 98.2 98.0 98.3 98.2 Pulse 97 83 96 Resp 18 20 20 18 B/P (MAP) 142/91 (108) 139/86 (103) 131/92 (105) Pulse Ox 98 98 97 94 O2 Delivery Room Air Room Air Room Air 06/21/20 06/21/20 06/21/20 06/21/20 20:00 20:04 20:34 23:00 Temp 98.2 98.2 Pulse 98 Resp 14 12 16 B/P (MAP) 121/71 (88) Pulse Ox 94 O2 Delivery Room Air Room Air Room Air 06/22/20 06/22/20 06/22/20 03:00 07:00 10:35 Temp 97.9 98.2 99.1 97.9 98.2 99.1 Pulse 92 103 98 Resp 16 18 20 B/P (MAP) 144/82 (102) 126/63 (84) 151/80 (103) Pulse Ox 94 93 95 O2 Delivery Room Air Room Air Intake and Output 06/21/20 06/21/20 06/22/20 15:00 23:00 07:00 Intake Total 240 ml 400 ml Balance 240 ml 400 ml Justicifation of Admission Dx: Justifications for Admission: Justification of Admission Dx: N/A AVERY BURGOS MD Jun 22, 2020 10:48
--- NOTE | 2020-06-22 12:40 | NUR ---
DISCHARGE INSTRUCTIONS GIVEN, QUESTIONS AND CONCERNS ANSWERED, PATIENT VERBALIZED UNDERSTANDING OF DISCHARGE INFORMATION INCLUDING FOLLOW UP WITH HER PRIMARY PROVIDER IN 1-2 WEEKS, AND PATIENT INFORMED THIS LOADING MACHINE OPERATOR HELPER THAT SHE WOULD FOLLOW UP AT [facility] IN [place].
--- NOTE | 2020-06-22 12:56 | NUR ---
SW following. Discussed with RN, discharge order for home with home health. Pt does not have an active PCP and declined home health. RN notified.
--- NOTE | 2020-06-22 13:52 | NUR ---
Pt stated her sister was downstairs waiting for her. Discharge instructions were given by Anika POWELL. Pt taken downstairs but her ride was not here. Call placed to her contact Maged Carmen to inform him of discharge and to ask if he would be able to pick her up. No answer, message left waiting on return phone call. Pt in room at this time.
--- NOTE | 2020-06-22 13:57 | PDOC ---
PULMONARY PROGRESS NOTES DATE: 06/22/20 TIME: 13:56 Subjective Patient remains on room air, no shortness of breath chest pain or cough Events Vitals Vital Signs Date Time Temp Pulse Resp B/P (MAP) Pulse Ox O2 Delivery O2 Flow Rate FiO2 06/22/20 10:35 99.1 98 20 151/80 (103) 95 Room Air 99.1 ROS: No Nausea, No Chest Pain, No Abdominal Pain, No Increase Cough General: Alert, Oriented X4 HEENT: Other Lungs: Crackles Cardiovascular: S1, S2 Abdomen: Soft, Non-tender Neuro Exam: Alert, Oriented Extremities: No Edema Skin: Warm Medications Active Scripts Medications Dose Route/Sig Max Daily Dose Days Date Category Comments CXR 06/22 IMPRESSION: 1. Stable small to moderate left pneumothorax. 2. Stable bilateral lower lobe atelectasis, infiltrate or scarring superimposed on chronic appearing interstitial changes. 3. Stable nodular opacity at the right lung apex. This appears to be separate from overlying osseous shadows. This can be better assessed with a nonemergent CT. CXR 06/21 IMPRESSION: 1. Slight interval decrease in a small to moderate left pneumothorax. 2. Stable left lower lobe atelectasis or infiltrate and suspected right lower lobe atelectasis or scarring. 3. Stable focal opacity overlying the right lung apex, possibly due to overlying osseous shadows or a nodule. Short-term radiographic or CT follow-up is recommended. Impression . IMPRESSION: 1. Acute respiratory failure secondary to benzodiazepine overdose--resolved now on room air 2. Toxic encephalopathy--improved 3. History of depression and schizophrenia. 4. Hemodynamically stable. 5. Mild elevation in troponin. 6. Left apical PTX ( small and stable ) , and LLL density most likely Atelectasis, no fever, normal wbc, less likely pneumonia Plan . stable from respiratory stand point, remains on room air CXR reviewed, stable left apical PTX, no need for intervention at this time, monitor closely , IS at bedside -- LLL Atelectasis ABX per ID --She has grown gram-positive cocci in two bottles out of four identified as coagulase-negative Staph for which she was on Augmentin. Await Psych recs follow Cardiology recs fall aspiration precaution Follow Neurology input covid19 neg Okay to discharge home today from our standpoint PT/OT D/W ROXANA ZACARIAS MD Jun 22, 2020 13:57
[2020-06-22 14:36] VITALS: BP 140/85
--- NOTE | 2020-06-22 19:04 | NUR ---
[facility] contacted for transport to Pt home. Pt discharged at 1814, she did not have her own clothes, she left in a hospital gown and other small personal belongings.
--- NOTE | 2020-06-22 23:02 | PN ---
DATE: 06/22/2020 SUBJECTIVE: Ms. Epstein is sitting at the edge of the bed comfortably, in no apparent distress. On questioning her, she denies any complaint, in particular, denied any chest pain, shortness of breath, cough, phlegm or hemoptysis. Denied chills, rigors or fever. PHYSICAL EXAMINATION: GENERAL: When I examined her, she looked well and was clearly in no apparent respiratory distress. No pallor, jaundice, cyanosis, or thyromegaly. No jugular venous distention, no lower limb edema. VITAL SIGNS: Heart rate was 103, blood pressure is 126/63, temperature was 98.2, respiratory rate was 18 and oxygen saturation was 94% on room air. HEAD, EYES, EARS, NOSE AND THROAT: Normocephalic, atraumatic. NECK: Supple. HEART: Showed normal first and second heart sounds, no gallop, murmur. CHEST: Clear to auscultation. She does have few bilateral basal crepitation. I could not appreciate any rhonchi. ABDOMEN: Slightly distended, soft, nontender. NEUROLOGIC: She is grossly intact. LABORATORY DATA: She has no lab work done today. Her chest x-ray showed that the patient continued to have stable small to moderate left pneumothorax, stable bilateral lower lobe atelectasis, infiltrate or scarring superimposed on chronic appearing interstitial changes. She also has stable nodular opacity of the right lung apex and this appears to be separate from overlying osseous shadows. ASSESSMENT: 1. The patient was originally admitted with an altered mental status likely due to benzodiazepine overdose. 2. Acute hypoxic respiratory failure requiring intubation, mechanical ventilation. She was subsequently successfully extubated. 3: Schizophrenia. 4. History of hepatitis C; however, her liver enzymes and ammonia and prothrombin time are all within normal limits. 5. The patient has a history of suicidal and homicidal ideation and was admitted one time at [facility]. 6. She is known to have noncompliance with her medication. 7. She grew gram-positive cocci in 2 bottles out of 4 and identified as Staphylococcus epidermidis, treated with IV vancomycin, now on Augmentin. 8. Dysphagia that has resolved. She is on a mechanical soft, thin liquid diet. 9. She has mild to moderate left-sided pneumothorax that is stable. The patient is hemodynamically stable, afebrile, oxygen saturation 94% on room air. I am awaiting the decision by the electrician supervisor substation, and if they okayed her discharge, I will definitely discharge her. MACRINA DR: Evgeny TID: [id number]
--- NOTE | 2020-07-23 11:49 | DS ---
DATE OF DISCHARGE: 07/23/2020 HOSPITAL COURSE: The patient is a 54-year-old female patient who has presented to the Emergency Room of [facility] with altered mental status. Her son found her in the bathroom unresponsive. She was unable to be aroused and her mother had called EMS. On arrival, she was snoring with no gag response. She did have twitching type movement, but no response to noxious stimuli. Her glucose was 154 per paramedics. She did receive Narcan upon arrival with no response. The patient was intubated for protection of her airways and was also febrile on arrival with a temperature of 101.5 and was hypertensive; however, there is no history of recent travel or specific ill contact. She has had some lab work, which showed a white cell count slightly elevated at 11,000. Her blood gases were unremarkable. Her chemistry was also unremarkable apart from impaired liver enzymes and the patient was basically transferred to [facility] ICU for further evaluation and treatment. CT scan of the head was unremarkable with no acute intracranial abnormality. CT scan of the chest and x-ray of the chest was unremarkable. It showed endotracheal tube was within the trachea, but only 1 cm above the martita. She was basically started on IV antibiotic for questionable aspiration pneumonia, has had blood culture. She was seen in consultation by the forest examiner and the neurologist as well as Infectious Disease specialist. Did grew gram-positive cocci on 06/14 in 2 out of 4 bottles with the coagulase-negative staph as the isolate. She was treated with vancomycin and cefepime as well as Flagyl. She was eventually successfully extubated and was switched to oral antibiotic in the form of Augmentin. Unfortunately, the day we planned to discharge her, she had a chest x-ray which showed that she has pneumothorax, and therefore, the patient did consult the forest examiner. However, her pneumothorax remained stable, and therefore, a decision was made to discharge her home. PHYSICAL EXAMINATION: GENERAL: On the day of discharge, the patient looked well and was clearly in no apparent respiratory distress. No pallor, jaundice, cyanosis or thyromegaly. No jugular venous distention. No lower limb edema. VITAL SIGNS: Her heart rate was 104, blood pressure was 140/85, temperature was 99.1, respiratory rate was 18 and oxygen saturation was 93%. HEAD, EYES, EARS, NOSE, AND THROAT: Showed normocephalic, atraumatic. NECK: Supple. HEART: Showed normal first and second heart sounds. No gallop or murmur. CHEST: Clear to auscultation. No crepitation or rhonchi. ABDOMEN: Distended, soft, nontender. NEUROLOGICAL: She was grossly intact. LABORATORY DATA: Her lab work showed a white cell count of 10,000, hemoglobin 12, hematocrit 36, MCV 91, and platelet count 269,000. Her chemistry showed a serum sodium 141, potassium 4.3, chloride 104, bicarbonate 26, anion gap of 11, BUN 17, creatinine 0.8. Estimated GFR was 75 mL per minute. Her AST, ALT, alkaline phosphatase were normal. DISCHARGE MEDICATIONS: She was discharged home to continue on Augmentin 875 mg twice a day for 5 more days. FINAL DISCHARGE DIAGNOSES: 1. Altered mental status secondary to benzodiazepine overdose. 2. Acute hypoxic respiratory failure requiring intubation and mechanical ventilation; however, she was successfully extubated. 3. Schizophrenia. 4. History of hepatitis C. However, her liver enzymes, ammonia and prothrombin time are all within normal range. 5. History of suicidal and homicidal ideation. She was admitted one time to [facility]. 5. Noncompliance with medication. 6. Did grew gram-positive cocci in 2 out of 34 bottles identified as Staph epidermidis, treated with IV vancomycin and Augmentin. 7. Dysphagia that has resolved. 8. The patient has mild to moderate left-sided pneumothorax that is stable. HERB DR: Evgeny TID: [id number]
== END 2020-06-22 18:15 | disposition home or self-care (01) | DRG 917 ==
LOC: 1 WEST ICU 02:33 → 4 NORTH 06-17 05:32
PROVIDERS: ADMIT Internal Medicine; ATTEND Internal Medicine
PROC: 5A1935Z Respiratory Ventilation, Less than 24 Consecutive Hours (ICD-10-PCS; principal; 2020-06-15)
PROC: 0BH17EZ Insertion of Endotracheal Airway into Trachea, Via Natural or Artificial Opening (ICD-10-PCS; 2020-06-15)
PROC: 5A09357 Assistance with Respiratory Ventilation, Less than 24 Consecutive Hours, Continuous Positive Airway Pressure (ICD-10-PCS; 2020-06-15)
DX: T42.4X1A Poisoning by benzodiazepines, accidental (unintentional), initial encounter (principal); J96.01 Acute respiratory failure with hypoxia; G92 Toxic encephalopathy; J93.83 Other pneumothorax; J98.11 Atelectasis; B96.89 Other specified bacterial agents as the cause of diseases classified elsewhere; E03.8 Other specified hypothyroidism; E66.9 Obesity, unspecified; F17.210 Nicotine dependence, cigarettes, uncomplicated; F20.9 Schizophrenia, unspecified; F32.9 Major depressive disorder, single episode, unspecified; F41.9 Anxiety disorder, unspecified; G89.29 Other chronic pain; I10 Essential (primary) hypertension; N20.0 Calculus of kidney; R13.10 Dysphagia, unspecified; Z91.14 Patient's other noncompliance with medication regimen; Z91.5 Personal history of self-harm; M19.90 Unspecified osteoarthritis, unspecified site; Z20.822 Contact with and (suspected) exposure to COVID-19; Z68.30 Body mass index [BMI] 30.0-30.9, adult; Z88.8 Allergy status to other drugs, medicaments and biological substances; Y92.89 Other specified places as the place of occurrence of the external cause; B95.7 Other staphylococcus as the cause of diseases classified elsewhere
CPT/HCPCS: 36415; 36600; 71045; 74176; 80048; 80053; 80061; 82140; 82805; 84443; 84484; 85025; 85027; 93005; 93308; 94002; G0238; J0692; J1630; J2060; J2704; J3370; J3490; J7030; J7040; J7050; 92610-GN; 97110-GP; 97530-GP; 97535-GO; G0378